=== PATIENT | male | born 1990 | race Caucasian/White ===

== ENCOUNTER 2021-12-11 10:44 | Emergency (ER) | payer OTHER, SELFPAY ==
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
[2021-12-11 10:55] VITALS: BP 164/98; PULSE 77; RESP 18; TEMP 36.9; O2SAT 97
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
[2021-12-11 12:21] VITALS: BP 159/89; PULSE 65; RESP 16; TEMP 36.4; O2SAT 98
== END 2021-12-11 12:23 | disposition home or self-care (01) ==
PROVIDERS: Emergency Provider Family Medicine; PCP Physician Assistant
DX: S62.353A Nondisplaced fracture of shaft of third metacarpal bone, left hand, initial encounter for closed fracture (principal)
CPT/HCPCS: 29125; 73130; 99284

== ENCOUNTER 2023-01-15 01:34 | Emergency (ER) | payer OTHER, SELFPAY ==
--- NOTE | ~2023-01-15 | CT_ITS ---
Clinical Indication: Epigastric pain CT Scan of the Chest, Abdomen, and Pelvis without Contrast: Technique: Contiguous sections were acquired throughout the chest, abdomen, and pelvis without IV con trast administration. Dose reduction technique was used on this scan by utilizing automated exposure control and iterative reconstruction technique. The dose-length product (DLP) was 1310.50 mGy-cm. COMPARISON: 04/17/2011 Findings: There is no evidence of any significant mediastinal, hilar or axillary lymphadenopathy. The mediastin al soft tissues appear normal. Moderate hiatal hernia noted. There is no evidence of pleural or pericardial effusion. 5 mm right perihilar pulmonary nodule noted (axial image 50). Lungs are otherwise clear. The liver, spleen, pancreas, adrenals and kidneys are within normal limits. Probable small gallstone. No evidence of aortic aneurysm. No lymphadenopathy. No bowel obstruction or bowel wall thickening. Normal appendix. Urinary bladder is unremarkable. Prostate gland and seminal vesicles are unremarkable. Impression: 5 mm right perihilar pulmonary nodule. According to Fleischner Society criteria, no further follow-up required for a low-risk patient. Consider 12 month follow-up CT for a high-risk patient. Probable tiny gallstone. Moderate hiatal hernia. Reviewed, dictated and finalized at location . Impression: 5 mm right perihilar pulmonary nodule. According to Fleischner Society criteria , no further follow-up required for a low-risk patient. Consider 12 month follo w-up CT for a high-risk patient. Probable tiny gallstone. Moderate hiatal hernia.
[2023-01-15 01:35] VITALS: BP 172/123; PULSE 110; RESP 20; TEMP 36.6; O2SAT 99
--- NOTE | 2023-01-15 01:35 | ECG_ITS ---
Measurements Intervals [place] Rate: 51 P: 1 CT: 134 QRS: 21 QRSD: 97 T: 12 QT: 400 QTc: 370 Interpretive Statements SINUS BRADYCARDIA OTHERWISE NORMAL ECG NO PREVIOUS ECG AVAILABLE FOR COMPARISON Electronically Signed On 01-15-2023 10:20:41 CDT by Ned Wills M.D.
[2023-01-15] MEDS: ONDANSETRON HCL ODT 4 MG TABLET PO (01:43)
[2023-01-15] MEDS: MAG HYDROX/ALUMINUM HYD/SIMETH 30 ML, PHENobarb/HYOSCY/ATROPINE/SCOP 32.4 MG, LIDOCAINE... PO (01:45)
--- NOTE | 2023-01-15 01:47 | ED.NAVMDI ---
HPI - Nausea/Vomiting/Diarrhea General Chief complaint: Abdominal Pain Stated complaint: epigastric abd pain Time Seen by Provider: 01/15/23 01:35 Source: patient Mode of arrival: ambulatory Limitations: no limitations History of Present Illness HPI Narrative: patient is a 32-year-old male with epigastric abdominal pain and nausea and vomiting who was woken from sleep at this time. patient has eaten 3-day-old pizza in the past 12 hours that no one else ate. MD elicited complaint: nausea, vomiting and abdominal pain Onset (ago): minute(s) (30) Description of vomiting: watery and bilious Associated abdominal pain: Yes Location of pain: epigastric Pain consistency: constant Severity: moderate Quality: sharp Exacerbating factors: none Relieving factors: none Associated symptoms: nausea/vomiting Related Data Home Medications Medication Instructions Recorded Confirmed omeprazole 20 mg capsule,delayed 20 mg PO DAILY 01/15/23 01/15/23 release Allergies Allergy/AdvReac Type Severity Reaction Status Date / Time No Known Allergies Allergy Verified 12/11/21 11:08 Review of Systems Review of Systems: All systems reviewed & are unremarkable except as noted in HPI and below Constitutional: Constitutional: Reports no additional constitutional complaints Eyes: Eyes: Reports no additional eye complaints ENT: Reports system reviewed and no additional complaints, except as documented Cardiovascular: Cardiovascular: Reports no additional cardiovascular complaints Respiratory: Respiratory: Reports no additional respiratory complaints Gastrointestinal: Gastrointestinal: Reports no additional gastrointestinal complaints Genitourinary: Genitourinary: Reports no additional male genitourinary complaints Musculoskeletal: Musculoskeletal: Reports no additional musculoskeletal complaints Integumentary/Breasts: Skin/Breast: Reports system reviewed and no additional complaints, except as docu Neurologic: Reports system reviewed and no additional complaints, except as documented Psychiatric: Psychiatric: Reports no additional psychiatric complaints Endocrine: Endocrine: Reports no additional endocrine complaints Hematologic/Lymphatic: Hematologic/Lymphatic: Reports no additional hematologic/lymphatic complaints Allergic/Immunologic: Allergic/Immunologic: Reports no additional allergic/immunologic complaints Exam Const: General: healthy appearing Nutritional Appearance: well nourished HENMT: Head: normal to inspection Ears: external ears normal Eyes: Conjunctivae: conjunctivae normal Cornea: corneas normal Neck: Neck: normal visual inspection Chest: Chest palpation & inspection: normal inspection of the chest Resp: Effort & Inspection: normal respiratory effort Auscultation: clear to auscultation bilaterally Cardio: Rate: regular rate Rhythm: regular rhythm Heart sounds: no murmurs GI: Inspection: non-distended GI Palp: Yes Soft to palpation, Yes Tenderness to palpation present (GI) and No Guarding due to palpation present (GI) Auscultation: normal bowel sounds : General: Yes bladder normal to palpation Back/Spine/Pelvis: Back: no CVA tenderness Skin: General skin exam: normal color Rashes: no rashes Wounds: no wounds Neuro: General: patient oriented x3 Cranial nerves: Yes Nystagmus not present Speech: normal speech Extrem: General: normal to inspection Psych: Mental Status: mental status grossly normal Affect: normal affect Course Vital Signs Vital signs: Vital Signs Temperature 36.6 C 01/15/23 01:35 Pulse Rate 110 H 01/15/23 01:35 Respiratory Rate 20 01/15/23 01:35 Blood Pressure 172/123 H 01/15/23 01:35 Pulse Oximetry 99 01/15/23 01:35 Oxygen Delivery Room Air 01/15/23 01:35 Temperature 36.6 C 01/15/23 01:35 Pulse Rate 99 01/15/23 02:44 Respiratory Rate 20 01/15/23 03:16 Blood Pressure 132/97 H 01/15/23 03:16 Pulse Oximetry 98 01/15/23 03:16
[2023-01-15] MEDS: SODIUM CHLORIDE 0.9% IV 1,000 ML 999 ML IV CONT (02:09)
[2023-01-15 02:16] LABS: Basophils Absolute Auto 0.08 K/mm3 (0.00-0.10); Basophils Percent Auto 0.7 % (0.0-1.0); Eosinophils Absolute Auto 0.49 K/mm3 (0.02-0.50); Eosinophils Percent Auto 4.1 % (1.0-6.0); Hematocrit 43.8 % (40.0-54.0); Hemoglobin 13.3 g/dL (14.0-18.0); Immature Granulocyte Absolute 0.05 K/mm3 (0.00-0.00); Immature Granulocyte Percent A 0.4 % (0.0-0.0); Lymphocytes Absolute Auto 4.78 K/mm3 (1.10-4.50); Lymphocytes Percent Auto 40.3 % (18.0-42.0); Mean Corpuscular HGB Conc 30.4 g/dL (32.0-36.0); Mean Corpuscular Hemoglobin 23.5 pg (27.0-31.0); Mean Corpuscular Volume 77.5 fL (78.0-102.0); Mean Platelet Volume 10.2 fl (8.7-11.0); Monocytes Absolute Auto 1.26 K/mm3 (0.10-0.90); Monocytes Percent Auto 10.6 % (2.0-11.0); Neutrophils Absolute Auto 5.2 K/mm3 (1.7-7.2); Neutrophils Percent Auto 43.9 % (50.0-70.0); Platelet Count Result 295 K/mm3 (150-420); Red Blood Count 5.65 M/mm3 (4.70-6.10); Red Cell Distribution Width 15.2 % (11.6-14.4); White Blood Count 11.9 K/mm3 (4.8-10.8)
[2023-01-15] MEDS: ONDANSETRON INJ 4 MG/2 ML VIAL IV PUSH (02:18)
[2023-01-15] MEDS: MORPHINE SULFATE (*CRX) 4 MG/ML INJ IV PUSH (02:18)
[2023-01-15] MEDS: PANTOPRAZOLE SODIUM IV 40 MG VIAL IV PUSH (02:19)
--- NOTE | 2023-01-15 02:20 | PC.NURSE ---
Pt escorted c nurse and polysomnograph tech to CT scanner. Pt continues to remain pale in color and having extreme upper abd pain c n/v present. He reports nothing is helping ease the pain. BP elevated, ERP aware of elevated BP at this time. Pt assisted to CT scan table, he c/o feeling very dizzy. Cool cloth given for pt forehead.
[2023-01-15 02:34] LABS: Alanine Aminotransferase 61 U/L (16-63); Albumin Level 3.4 g/dL (3.4-5.0); Alkaline Phosphatase 123 U/L (46-116); Anion Gap 6 mmol/L (8-16); Aspartate Amino Transferase 23 U/L (15-37); Bilirubin,Total 0.4 mg/dL (0.00-1.00); Blood Urea Nitrogen 22 mg/dL (7-18); Calcium 8.7 mg/dL (8.5-10.1); Carbon Dioxide 31 mmol/L (21-32); Chloride 106 mmol/L (98-108); Estimated CRCL calculation 86 ml/min; Estimated Glomerular Filt Rate > 60; Glucose 145 mg/dL (70-99); Lipase 58 U/L (16-77); Osmolality Calculated 302 mOsm/kg (285-295); Potassium 3.5 mmol/L (3.5-5.1); Sodium 143 mmol/L (136-145); Total Protein 7.1 g/dL (6.4-8.2)
[2023-01-15 02:44] VITALS: BP 169/109; PULSE 99; RESP 18; O2SAT 98
[2023-01-15 03:16] VITALS: BP 132/97; RESP 20; O2SAT 98
[2023-01-15 03:25] VITALS: BP 132/89; PULSE 74; RESP 18; TEMP 36.6; O2SAT 99
== END 2023-01-15 03:30 | disposition home or self-care (01) ==
PROVIDERS: Emergency Provider Emergency Medicine; PCP Physician Assistant
DX: K52.9 Noninfective gastroenteritis and colitis, unspecified (principal)
CPT/HCPCS: 36415; 71250; 74176; 80053; 83690; 84484; 85025; 93005; 96361; 96374; 96375; 99284; A9270; C9113; J2270; J2405; J7030

== ENCOUNTER 2023-07-23 10:44 | Emergency (ER) | payer OTHER, SELFPAY ==
[2023-07-23] VITALS (19 sets, daily range): BP systolic 134–176; BP diastolic 87–117; PULSE 41–63; RESP 10–22; TEMP 36.4–36.8; O2SAT 97–100
--- NOTE | ~2023-07-23 | CT_ITS ---
EXAMINATION: CT chest abdomen pelvis wo con DATE: 07/23/2023 11:47 INDICATION: Bilateral flank pain. TECHNIQUE: Computed tomography (CT) of the chest, abdomen, and pelvis was performed without intraveno us contrast. Automated exposure control and iterative reconstruction technique were employed. The dos e-length product was 1187.41 mGy-cm. COMPARISON: CT 01/15/2023 FINDINGS: CHEST CT: There is mild dependent atelectasis bilaterally. Calcified bilateral lung nodules are consistent with old granulomatous disease. No pleural effusion. The heart size is normal. No pericardial effusion. ABDOMEN/PELVIS CT: There is mild intrahepatic biliary duct dilatation. There is a gallstone in the gallbladder, which is distended. There is fat stranding around the pancreas, consistent with acute interstitial pancreatit is. The common duct is dilated to 8 mm. The spleen, adrenal glands, and kidneys are normal. There is diverticulosis of the colon without evidence of diverticulitis. The appendix is normal. There are no pathologically enlarged lymph nodes. There is no free intraperitoneal fluid. There is mild lumbar spo ndylosis. IMPRESSION: 1. Acute interstitial pancreatitis. 2. Cholelithiasis. 3. Gallbladder distention and mildly dilated biliary ducts. No common duct stone identified. Reviewed, dictated and finalized at location A. SHOW HOST IMPRESSION: 1. Acute interstitial pancreatitis. 2. Cholelithiasis. 3. Gallbladder distention and mildly dilated biliary ducts. No common duct ston e identified.
--- NOTE | 2023-07-23 11:00 | PC.NURSE ---
ERP is aware of patient's heart rate being in the 40's and 50's
--- NOTE | 2023-07-23 11:00 | ECG_ITS ---
Measurements Intervals [place] Rate: 51 P: 25 RI: 128 QRS: 43 QRSD: 96 T: 37 QT: 430 QTc: 398 Interpretive Statements SINUS BRADYCARDIA OTHERWISE NORMAL ELECTROCARDIOGRAM COMPARED TO ECG 01/15/2023 01:43:35 NO SIGNIFICANT CHANGES Electronically Signed On 07-23-2023 15:17:47 PLODDING MACHINE OPERATOR by Remi Melo M.D.
[2023-07-23] MEDS: SODIUM CHLORIDE 0.9% IV 1,000 ML 999 ML IV CONT ×2 (11:14→12:36)
[2023-07-23] MEDS: CALCIUM GLUC 2,000 MG/NS 100ML 2,000 MG/100 ML BAG 100 MG IVPB (11:15)
[2023-07-23] MEDS: FAMOTIDINE 20 MG/2 ML VIAL 40 MG IV PUSH (11:15)
--- NOTE | 2023-07-23 11:16 | ED.GENADULT ---
HPI - General Adult General Chief complaint: Unspecified Stated complaint: GERD Time Seen by Provider: 07/23/23 11:00 History of Present Illness HPI narrative: 33yo man history of alcohol abuse now sober, chronic hepatitis C, GERD on omeprazole presents with worsening reflux, heartburn, generalized abdominal cramps, and symmetric bilateral flank and lower back pain. Notices his urine is pretty dark lately, so he stopped his anti-hepC medication Mavyret because concerned about its effect on his liver and kidney. No fevers, chills, vomiting, diarrhea, dysuria, or bloody stools. Related Data Home Medications Medication Instructions Recorded Confirmed omeprazole 20 mg capsule,delayed 20 mg PO DAILY 01/15/23 07/23/23 release ferrous sulfate 325 mg (65 mg 1 mg PO EVERY OTHER DAY 07/23/23 07/23/23 iron) tablet glecaprevir 100 mg-pibrentasvir 40 3 tablet PO DAILY 07/23/23 07/23/23 mg tablet (Mavyret) sertraline 100 mg tablet 100 mg PO DAILY 07/23/23 07/23/23 Allergies Allergy/AdvReac Type Severity Reaction Status Date / Time No Known Allergies Allergy Verified 07/23/23 10:49 Review of Systems Review of Systems: All systems reviewed & are unremarkable except as noted in HPI and below Constitutional: Constitutional: Denies chills and Denies fever(s) ENT: Denies dysphagia Cardiovascular: Cardiovascular: Denies chest pain Respiratory: Respiratory: Denies chest congestion and Denies dyspnea Gastrointestinal: Gastrointestinal: Reports abdominal pain, Reports bloating, Reports heartburn and Reports nausea Genitourinary: Genitourinary: Denies dysuria Musculoskeletal: Musculoskeletal: Reports back pain Neurologic: Denies confusion Hematologic/Lymphatic: Hematologic/Lymphatic: Denies easy bleeding and Denies easy bruising Exam Const: General: healthy appearing, no acute distress and alert Nutritional Appearance: well nourished Orientation/consciousness: patient oriented x3 HENMT: Head: normal to inspection Eyes: Conjunctivae: conjunctivae normal Other: anicteric Chest: Chest palpation & inspection: normal inspection of the chest Resp: Effort & Inspection: normal respiratory effort, not labored, no retractions and not tachypneic Auscultation: clear to auscultation bilaterally Cardio: Rate: bradycardic Rhythm: regular rhythm Heart sounds: no murmurs GI: Inspection: non-distended GI Palp: Yes Soft to palpation and Yes Tenderness to palpation present (GI) Other: bilateral upper quadrant mild tenderness Skin: General skin exam: normal color, no jaundice and no pallor Extrem: General: no clubbing, cyanosis or edema Course Vital Signs Vital signs: Vital Signs Temperature 36.4 C 07/23/23 10:44 Pulse Rate 52 L 07/23/23 10:44 Respiratory Rate 17 07/23/23 10:44 Blood Pressure 141/102 H 07/23/23 10:44 Pulse Oximetry 97 07/23/23 10:44 Oxygen Delivery Room Air 07/23/23 10:44 Temperature 36.4 C 07/23/23 10:50 Pulse Rate 52 L 07/23/23 10:50 Respiratory Rate 16 07/23/23 10:50 Blood Pressure 152/106 H 07/23/23 10:50 Pulse Oximetry 97 07/23/23 10:50 Oxygen Delivery Room Air 07/23/23 10:50 Medical Decision Making MDM Narrative Medical decision making narrative: acute epigastric and flank pain DDx reflux, indigestion, renal colic, renal failure, metabolic derangement, hepatitis Labs and CT reviewed. Has chronic transaminase elevation in 300s. Normal liver function. Possible stranding about pancreas on CT. One cholelith no obstruction or inflammation. EKG with sinus bradycardia. Hypertensive with this. Lipase several thousand lab is having to dilute it. Calling out for transfer. Discussed results with patient, who declines my strong recommendation to stay and be admitted for acute pancreatitis. Pt has intact MDM and his pancreatitis does appear uncomplicated, without biliary obstruction, hemorrhage, necrosis, or dehydration. Triglyc
[2023-07-23 11:24] LABS: Basophils Absolute Auto 0.02 K/mm3 (0.00-0.10); Basophils Percent Auto 0.3 % (0.0-1.0); Eosinophils Absolute Auto 0.16 K/mm3 (0.02-0.50); Eosinophils Percent Auto 2.6 % (1.0-6.0); Hematocrit 42.2 % (40.0-54.0); Hemoglobin 13.1 g/dL (14.0-18.0); Immature Granulocyte Absolute 0.02 K/mm3 (0.00-0.00); Immature Granulocyte Percent A 0.3 % (0.0-0.0); Lymphocytes Absolute Auto 1.06 K/mm3 (1.10-4.50); Lymphocytes Percent Auto 17.2 % (18.0-42.0); Mean Corpuscular Hemoglobin 24.5 pg (27.0-31.0); Mean Platelet Volume 9.9 fl (8.7-11.0); Monocytes Percent Auto 8.1 % (2.0-11.0); Neutrophils Absolute Auto 4.4 K/mm3 (1.7-7.2); Neutrophils Percent Auto 71.5 % (50.0-70.0); Platelet Count Result 222 K/mm3 (150-420); Red Blood Count 5.34 M/mm3 (4.70-6.10); White Blood Count 6.2 K/mm3 (4.8-10.8)
[2023-07-23 11:36] LABS: INR 0.9; Prothrombin Time 10.2 Seconds (9.50-12.10)
[2023-07-23 11:49] LABS: Alanine Aminotransferase 393 U/L (16-63); Albumin Level 3.6 g/dL (3.4-5.0); Alkaline Phosphatase 218 U/L (46-116); Anion Gap 11 mmol/L (8-16); Aspartate Amino Transferase 349 U/L (15-37); Bilirubin,Total 1.2 mg/dL (0.00-1.00); Blood Urea Nitrogen 11 mg/dL (7-18); Calcium 8.8 mg/dL (8.5-10.1); Carbon Dioxide 28 mmol/L (21-32); Chloride 103 mmol/L (98-108); Estimated CRCL calculation 110 ml/min; Estimated Glomerular Filt Rate > 60; Glucose 105 mg/dL (70-99); Osmolality Calculated 293 mOsm/kg (285-295); Potassium 4.6 mmol/L (3.5-5.1); Sodium 142 mmol/L (136-145); Total Protein 7.2 g/dL (6.4-8.2)
[2023-07-23 11:51] LABS: Troponin I 7.1 ng/L (0.00-60.4)
[2023-07-23 11:52] LABS: Ethanol < 3 mg/dL (0-6); Magnesium 1.8 mg/dL (1.8-2.4)
[2023-07-23 11:52] LABS: Creatine Kinase 141 U/L (39-308); NT Pro B Type Natriuretic Pept 31 pg/mL (0-125)
[2023-07-23] MEDS: PROMETHAZINE HCL 25 MG/ML AMPUL 12.5 MG IV PUSH (12:09)
[2023-07-23 12:34] LABS: Lipase > 2500 U/L (16-77)
[2023-07-23] MEDS: KETOROLAC 30 MG/ML VIAL (*BKC) IV PUSH (12:37)
[2023-07-23] MEDS: HYDROmorphone HCL INJ (*CRX) 2 MG/ML VIAL 0.5 MG IV PUSH (12:39)
[2023-07-23 12:53] LABS: Cholesterol 205 mg/dL (0-200); HDL Direct 42 mg/dL (40-60); LDL Cholesterol Calculated 134 mg/dL (<130); Triglycerides 147 mg/dL (0-150)
== END 2023-07-23 13:35 | disposition home or self-care (01) ==
PROVIDERS: Emergency Provider Emergency Medicine; PCP Physician Assistant
DX: K85.10 Biliary acute pancreatitis without necrosis or infection (principal); B18.2 Chronic viral hepatitis C; Z79.899 Other long term (current) drug therapy
CPT/HCPCS: 36415; 71250; 74176; 80053; 80061; 80307; 82550; 83605; 83690; 83735; 83880; 84484; 85025; 85610; 93005; 96361; 96365; 96375; 99284; J0613; J1170; J1885; J2550; J7030

== ENCOUNTER 2023-12-10 08:42 | Outpatient (CLI) | payer OTHER, SELFPAY ==
[2023-12-10 09:14] LABS: Basophils Absolute Auto 0.04 K/mm3 (0.00-0.10); Basophils Percent Auto 0.6 % (0.0-1.0); Eosinophils Absolute Auto 0.11 K/mm3 (0.02-0.50); Eosinophils Percent Auto 1.6 % (1.0-6.0); Hematocrit 46.3 % (40.0-54.0); Hemoglobin 14.8 g/dL (14.0-18.0); Immature Granulocyte Absolute 0.02 K/mm3 (0.00-0.00); Immature Granulocyte Percent A 0.3 % (0.0-0.0); Lymphocytes Absolute Auto 0.92 K/mm3 (1.10-4.50); Lymphocytes Percent Auto 13.2 % (18.0-42.0); Mean Corpuscular Hemoglobin 25.2 pg (27.0-31.0); Mean Corpuscular Volume 78.7 fL (78.0-102.0); Mean Platelet Volume 9.7 fl (8.7-11.0); Monocytes Absolute Auto 0.65 K/mm3 (0.10-0.90); Monocytes Percent Auto 9.3 % (2.0-11.0); Neutrophils Absolute Auto 5.25 K/mm3 (1.70-7.20); Platelet Count Result 178 K/mm3 (150-420); Red Blood Count 5.88 M/mm3 (4.70-6.10); Red Cell Distribution Width 15.2 % (11.6-14.4)
[2023-12-10 09:44] LABS: Alanine Aminotransferase 34 U/L (16-63); Albumin Level 3.8 g/dL (3.4-5.0); Alkaline Phosphatase 94 U/L (46-116); Anion Gap 7 mmol/L (4-12); Aspartate Amino Transferase 21 U/L (15-37); Blood Urea Nitrogen 13 mg/dL (7-18); Calcium 9.3 mg/dL (8.5-10.1); Carbon Dioxide 30 mmol/L (21-32); Chloride 101 mmol/L (98-108); Estimated Glomerular Filt Rate > 60; Glucose 92 mg/dL (70-99); Osmolality Calculated 286 mOsm/kg (285-295); Potassium 4.4 mmol/L (3.5-5.1); Sodium 138 mmol/L (136-145); Total Protein 7.7 g/dL (6.4-8.2)
[2023-12-11 20:49] LABS: Hepatitis C RNA, Quant PCR <15 NOT DETECTED IU/mL (NOT DETECTED)
== END 2023-12-10 08:43 | disposition home or self-care (01) ==
LOC: CHSLAB 08:46
PROVIDERS: PCP Physician Assistant
DX: B19.20 Unspecified viral hepatitis C without hepatic coma (principal)
CPT/HCPCS: 36415; 80053; 85025; 87522

== ENCOUNTER 2024-12-08 09:38 | Emergency (ER) | payer MEDICAID, SELFPAY ==
[2024-12-08] VITALS (9 sets, daily range): BP systolic 132–154; BP diastolic 77–104; PULSE 59–90; RESP 14–18; TEMP 36.7–36.9; O2SAT 94–98
--- NOTE | ~2024-12-08 | CT_ITS ---
CT abdomen pelvis w con Ordering provider: Rashida Ponce MD History: 34 years Male with . N/V, Epigastric pain X 1 day - Gallbladder flare-up? . Comparison: July 23, 2023 Technique: CT abdomen and pelvis with IV and without oral contrast. Automated exposure control and it erative reconstruction technique were employed. The dose-length product was 907.40 mGy-cm. 100 mL Omn ipaque 350 was given IV. Findings: VISUALIZED LOWER CHEST: Normal. UPPER ABDOMINAL ORGANS: Liver: Normal. Gallbladder: Cholelithiasis. Spleen: Normal. Stomach/duodenum: Sliding hiatus hernia. Pancreas: Minimal fat stranding around the head of the pancreas is noted which may indicate pancreati tis. Clinical correlation advised. Adrenals: Normal. Kidneys: Normal. PELVIC ORGANS: The bladder shows slightly thickened wall anteriorly. Evaluation for cystitis advised. BOWEL AND MESENTERY: Colon: No evidence of diverticulitis. Normal appendix. Small Bowel: Normal. No obstruction. Peritoneum/mesentery: No free air or free fluid. No mesenteric lymphadenopathy. RETROPERITONEUM: Normal aorta. No retroperitoneal lymphadenopathy. MUSCULOSKELETAL: Superficial soft tissues: The superficial soft tissues are normal. Bones: Normal spine. IMPRESSION: 1. Minimal fat stranding around the head of the pancreas which may indicate pancreatitis. Clinical c orrelation and follow-up advised. 2. Cholelithiasis. Reviewed, dictated and finalized at location A. IMPRESSION: 1. Minimal fat stranding around the head of the pancreas which may indicate pa ncreatitis. Clinical correlation and follow-up advised. 2. Cholelithiasis.
--- NOTE | ~2024-12-08 | XR_ITS ---
XR chest 1V portable Ordering provider: Rashida Ponce MD History: 34 years Male with . N/V, Epigastric pain X 1 day - Gallbladder flare-up? . Comparison: None. FINDINGS: MEDIASTINUM: The cardiac silhouette is not enlarged. LUNGS: No infiltrates, effusions or pneumothorax. OTHER: No free air under the diaphragm. IMPRESSION: No acute cardiopulmonary pathology. Reviewed, dictated and finalized at location A.
--- NOTE | 2024-12-08 09:55 | ED_ITS ---
HPI - Abdominal Pain General Chief Complaint: Abdominal Pain Stated Complaint: gallbladder attack Source: patient Mode of arrival: ambulatory Limitations: no limitations History of Present Illness HPI narrative: 34 years old white male came to the ED with upper abdominal pain associated with fever, nausea, vomiting for the last 2 days, history of similar symptoms secondary to gallbladder issues. Hit history of hypertension at night marijuana use daily Related Data Home Medications ?Medication ?Instructions ?Recorded ?Confirmed ?Last Taken ?Type omeprazole 20 mg capsule,delayed 20 mg PO DAILY 01/15/23 07/23/23 Unknown History release ferrous sulfate 325 mg (65 mg 1 mg PO EVERY OTHER DAY 07/23/23 07/23/23 Unknown History iron) tablet glecaprevir 100 mg-pibrentasvir 40 3 tablet PO DAILY 07/23/23 07/23/23 Unknown History mg tablet (Mavyret) sertraline 100 mg tablet 100 mg PO DAILY 07/23/23 07/23/23 Unknown History Allergies Allergy/AdvReac Type Severity Reaction Status Date / Time No Known Allergies Allergy Verified 12/08/24 09:42 Review of Systems 2 Review of Systems: All systems reviewed & are unremarkable except as noted in HPI and below Exam 2 Narrative: General appearance: Well-developed, well-nourished Skin: Normal color Head: Normocephalic, nontraumatic Eyes: Clear conjunctiva ENT: Oropharynx normal, ears normal, nose normal Neck: Supple, nontender Chest and respiratory: Airway patent, no respiratory distress, no accessory muscle use Heart: Regular rate/rhythm Abdomen: Soft, diffuse tenderness upper abdomen mainly right upper quadrant and epigastric area, no guarding or rebound Musculoskeletal: Normal range of motion, nontender back Neurologic: Alert and oriented ?3, [employer] is normal as tested, no gross motor deficit Course Vital Signs Vital signs: Vital Signs Pulse Oximetry 96 12/08/24 09:40 Temperature 36.7 C 12/08/24 09:43 Pulse Rate 69 12/08/24 11:06 Respiratory Rate 16 12/08/24 11:06 Blood Pressure 149/100 H 12/08/24 11:06 Pulse Oximetry 97 12/08/24 11:06 Oxygen Delivery Room Air 12/08/24 11:06 MDM - Abdominal Pain MDM Narrative Medical decision making narrative: patient presents with upper abdominal pain, history of cholelithiasis months ago Vital signs are stable Physical examination consistent with diffuse upper abdominal pain mainly right upper quadrant Differential diagnosis include cholecystitis, cholangitis, diverticulitis, colitis, urinary tract infection Blood workup today includes CBC, CMP, lipase, lactic acid showed WBC of 12.1, lipase 1012 CT abdomen and pelvis with IV contrast showed cholelithiasis and pancreatitis Diagnosis acute pancreatitis high likely secondary to cholelithiasis. Patient report no alcohol use for over 1 year, patient declined to be hospitalized because of insurance issue. He is telling me that he is getting get his insurance tomorrow. I declare that I have personally explained to the patient the risks and consequences involved in leaving this facility at this time. the benefits of continued treatment and/or hospitalization. And the alternatives. If any. to continued treatment and/or hospitalization. if applicable.I have not identified any psychosis, drugs, mental illness, or medical illness that alters decision- making capacity (reasoning abilities ). Differential Diagnosis Differential diagnosis: Likely acute appendicitis, diverticulitis, gastroenteritis and pancreatitis Medical Records Attestation: I reviewed the patient's medical records. Lab Data Attestation: I reviewed the patient's lab results. 12/08/24 10:02 12/08/24 10:02 Labs: Lab Results 12/08/24 Range/Units 10:02 WBC 12.1 H (4.8-10.8) K/mm3 RBC 5.40 (4.70-6.10) M/mm3 Hgb 13.9 L (14.0-18.0) g/dL Hct 43.1 (40.0-54.0) % MCV 79.8 (78.0-102.0) fL MCH 25.7 L (27.0-31.0) pg MCHC 32.3 (32-36) g/dL RDW 13.6 (11.6-14.4) % Plt Count 208 (150-420) K/mm3 MPV 9.9 (8.7-11.0) fl Immature Gran % (Auto) 0.3 H (0.0-0.0) % Neut % (Auto) 76.6 H (50.0-70.0) % Lymph % (Auto) 12.7 L (18.0-42.0) % [place] % (Auto) 9.0 (2.0-11.0) % Eos % (Auto) 1.2 (1.0-6.0) % Baso % (Auto) 0.2 (0.0-1.0) % Lymph # (Auto) 1.54 (1.10-4.50) K/mm3 [place] # (Auto) 1.09 H (0.10-0.90) K/mm3 Eos # (Auto) 0.14 (0.02-0.50) K/mm3 Baso # (Auto) 0.03 (0.00-0.10) K/mm3 Abs Immat Gran (auto) 0.04 H (0.00-0.00) K/mm3 Absolute Neuts (auto) 9.25 H (1.70-7.20) K/mm3 Absolute Nucleated RBC 0.00 (0.00-0.00) K/mm3 Nucleated RBC % 0.0 (0-0.0) % Sodium 138 (137-145) mmol/L Potassium 4.4 (3.4-5.0) mmol/L Chloride 106 (98-107) mmol/L Carbon Dioxide 28 (22-30) mmol/L Anion Gap 4 (4-12) mmol/L BUN 21 H (9-20) mg/dL Creatinine 1.22 (0.7-1.3) mg/dL Estim Creat Clear Calc 91 ml/min Estimated GFR > 60 (59 - ) Glucose 100 (65-110) mg/dL Calculated Osmolality 289 (285-295) mOsm/kg Lactic Acid 0.8 (0.4-2.0) mmol/L Calcium 8.8 (8.4-10.2) mg/dL Total Bilirubin 0.8 (0.2-1.3) mg/dL AST 25 (17-59) U/L ALT 21 (6-50) U/L Alkaline Phosphatase 67 (38-126) U/L Troponin I < 0.012 (0.000-0.034) ng/mL Total Protein 7.5 (6.3-8.2) g/dL Albumin 4.1 (3.5-5.1) g/dL Lipase 1012 H (23-300) U/L Imaging Data Radiologist's impression: ITS Impressions Chest X-Ray 12/08/24 10:51 IMPRESSION: No acute cardiopulmonary pathology. Abdomen/Pelvis CT 12/08/24 10:52 IMPRESSION: 1. Minimal fat stranding around the head of the pancreas which may indicate pancreatitis. Clinical correlation and follow-up advised. 2. Cholelithiasis. Critical Care Time Critical Care Time Critical Care Time: No Discharge Plan Discharge Clinical Impression: Acute pancreatitis Patient Disposition: Left Against Medical Advice Condition: Stable Instructions: Pancreatitis (ED) Additional Instructions: Patient left AGAINST MEDICAL ADVICE. Patient Language: Sami Prescriptions: No Action omeprazole 20 mg Capsule,Delayed Release(Dr/Ec) 20 mg PO DAILY sertraline 100 mg tablet 100 mg PO DAILY ferrous sulfate 325 mg (65 mg iron) tablet 1 mg PO EVERY OTHER DAY Mavyret 100-40 mg tablet 3 tablet PO DAILY ketorolac 10 mg tablet 10 mg PO Q6H PRN (Reason: moderate to severe acute pain) 5 Days Qty: 15 0RF hydrocodone-acetaminophen 5-325 mg tablet 2 tablet PO Q6H PRN (Reason: severe pain only) Qty: 30 0RF promethazine 25 mg tablet 25 mg PO Q6H PRN (Reason: nausea, abdominal pain) Qty: 20 0RF Follow-up/Referrals: Tai,JAY Storm [Primary Care Provider] -
[2024-12-08 10:07] LABS: Basophils Absolute Auto 0.03 K/mm3 (0.00-0.10); Basophils Percent Auto 0.2 % (0.0-1.0); Eosinophils Absolute Auto 0.14 K/mm3 (0.02-0.50); Eosinophils Percent Auto 1.2 % (1.0-6.0); Hematocrit 43.1 % (40.0-54.0); Hemoglobin 13.9 g/dL (14.0-18.0); Immature Granulocyte Absolute 0.04 K/mm3 (0.00-0.00); Immature Granulocyte Percent A 0.3 % (0.0-0.0); Lymphocytes Absolute Auto 1.54 K/mm3 (1.10-4.50); Lymphocytes Percent Auto 12.7 % (18.0-42.0); Mean Corpuscular HGB Conc 32.3 g/dL (32-36); Mean Corpuscular Hemoglobin 25.7 pg (27.0-31.0); Mean Corpuscular Volume 79.8 fL (78.0-102.0); Mean Platelet Volume 9.9 fl (8.7-11.0); Monocytes Absolute Auto 1.09 K/mm3 (0.10-0.90); Neutrophils Absolute Auto 9.25 K/mm3 (1.70-7.20); Neutrophils Percent Auto 76.6 % (50.0-70.0); Platelet Count Result 208 K/mm3 (150-420); Red Cell Distribution Width 13.6 % (11.6-14.4); White Blood Count 12.1 K/mm3 (4.8-10.8)
[2024-12-08] MEDS: ONDANSETRON INJ 4 MG/2 ML VIAL IV PUSH (10:08)
[2024-12-08] MEDS: SODIUM CHLORIDE 0.9% IV 1,000 ML 999 ML IV CONT (10:08)
[2024-12-08] MEDS: HYDROmorphone HCL INJ (*CRX) 2 MG/ML VIAL 0.5 MG IV PUSH (10:08)
[2024-12-08 10:17] LABS: Alanine Aminotransferase 21 U/L (6-50); Albumin Level 4.1 g/dL (3.5-5.1); Alkaline Phosphatase 67 U/L (38-126); Anion Gap 4 mmol/L (4-12); Aspartate Amino Transferase 25 U/L (17-59); Bilirubin,Total 0.8 mg/dL (0.2-1.3); Blood Urea Nitrogen 21 mg/dL (9-20); Calcium 8.8 mg/dL (8.4-10.2); Carbon Dioxide 28 mmol/L (22-30); Chloride 106 mmol/L (98-107); Estimated CRCL calculation 91 ml/min; Estimated Glomerular Filt Rate > 60; Glucose 100 mg/dL (65-110); Lipase 1012 U/L (23-300); Osmolality Calculated 289 mOsm/kg (285-295); Potassium 4.4 mmol/L (3.4-5.0); Sodium 138 mmol/L (137-145); Total Protein 7.5 g/dL (6.3-8.2)
[2024-12-08 10:18] LABS: Lactic Acid Reflex 0.8 mmol/L (0.4-2.0)
[2024-12-08 10:30] LABS: Troponin I < 0.012 ng/mL (0.000-0.034)
== END 2024-12-08 13:10 | disposition left against medical advice (07) ==
PROVIDERS: Emergency Provider Emergency Medicine; PCP Physician Assistant
DX: K85.90 Acute pancreatitis without necrosis or infection, unspecified (principal); I10 Essential (primary) hypertension
CPT/HCPCS: 36415; 71045; 74177; 80053; 83605; 83690; 84484; 85025; 96361; 96374; 96375; 99284; J1171; J2405; J7030; Q9967

== ENCOUNTER 2024-12-08 14:40 | Inpatient (IN) | payer OTHER, SELFPAY ==
--- NOTE | ~2024-12-08 | US_ITS ---
EXAMINATION: US right upper quadrant DATE: 12/08/2024 19:32 INDICATION: RUQ pain TECHNIQUE: Multiple grayscale and Doppler ultrasound images of the right upper quadrant were obtained . COMPARISON: CT abdomen pelvis, same date. FINDINGS: Pancreas poorly visualized. Diffusely echogenic parenchyma. No solid or cystic liver mass d etected. No surface nodularity. Normal hepatopetal flow in the main portal vein. No wall thickening o r pericholecystic fluid. Multiple mobile echogenic intraluminal gallbladder foci. 7 mm echogenicity o f the gallbladder fundus which was not mobile and did not shadow. The common bile duct measures 3 mm. Positive sonographic Jerome sign. IMPRESSION: Echogenic liver, most commonly due to steatosis but also can be seen with hepatitis and fibrosis. Cholelithiasis. No gallbladder wall thickening or pericholecystic fluid. Positive sonographic Jerome sign, which may related to gallbladder pathology or confounded by the inflammatory changes noted in t he pancreatic head CT. 7 mm adherent stone versus gallbladder polyp. Reviewed, dictated and finalized at location K. IMPRESSION: Echogenic liver, most commonly due to steatosis but also can be seen with hepat itis and fibrosis. Cholelithiasis. No gallbladder wall thickening or pericholecystic fluid. Positi ve sonographic Jerome sign, which may related to gallbladder pathology or confo unded by the inflammatory changes noted in the pancreatic head CT. 7 mm adherent stone versus gallbladder polyp.
--- OUTSIDE RECORDS SUMMARY | 2024-12-08 14:47 | XMS_ITS ---
Author Organization Unknown Address [address] [place] [phone] Phone Care Team Providers Care Managing Cognitive Engineer Name Role Phone MAKI Carolina Attending Unavailable KATHERINE Engle Primary Unavailable Immunization Immunization Date Status Additional Notes Code Code System DTP 1988 Completed CVX DTP 03/07/1989 Completed CVX DTP 11/12/1990 Completed CVX DTP 12/06/1990 Completed CVX DTP 11/13/1991 Completed CVX DTP 01/27/1993 Completed CVX OPV 1988 Completed 02 CVX OPV 03/07/1989 Completed 02 CVX OPV 12/06/1990 Completed 02 CVX OPV 11/13/1991 Completed 02 CVX OPV 01/27/1993 Completed 02 CVX MMR 12/06/1990 Completed 03 CVX MMR 01/27/1993 Completed 03 CVX Hep B, adolescent or pediatric 08/12/1998 Completed 08 CVX Hep B, adolescent or pediatric 09/09/1998 Completed 08 CVX Hep B, adolescent or pediatric 03/17/1999 Completed 08 CVX Td (adult), 2 Lf tetanus toxoid, preservative free, adsorbed 2003 Completed 09 CVX Hib, unspecified formulation 12/06/1990 Completed 17 CVX Results MRI ABDOMEN W/O CONTRAST - C ompleted: 08/14/2023 13:15 LOINC: ADDENDUM REPORT: ADDENDUM: This addendum report supersedes the original report dated 08/14/2023 Correction to the technique which should read as below: TECHNIQUE: MR images of the ABDOMEN only were acquired without intravenous contrast according to the [facility] protocol. All images stored on PACS. END OF ADDENDUM REPORT EXAM DESCRIPTION: MRI ABDOMEN W/O CONTRAST REASON FOR STUDY: MRCP protocol. c.6 months of GERD-like s/s, with a 1-yr diagnosis of Hepatitis C and accompanying abnormalities in the pt's liver labs; gallstones apparently demonstrated on outside CT; pt states he had begun, then interrupted, treatment for the Hep-C, until the more-acute s/s could be parsed out. No traumatic incidents noted. Duration: 1 yr w/Hepatitis C, 6 mos of acute G.I. s/s. TECHNIQUE: MR images of the abdomen/pelvis were acquired without intravenous contrast according to the MRCP protocol. All images stored on PACS. COMPARISON: None available FINDINGS: LOWER CHEST: No significant pulmonary abnormalities. No effusion. LIVER: Normal size. No mass. No cysts. GALLBLADDER: Stones. No wall thickening or pericholecystic fluid BILE DUCTS: No intrahepatic or extrahepatic ductal dilatation. No filling defect to suggest choledocholithiasis. The common bile duct measures 6 mm. SPLEEN: Enlarged at 13.9 cm. No focal lesion. PANCREAS: No masses. No significant calcifications. No adjacent inflammation or peripancreatic fluid collections. Pancreatic duct not dilated. KIDNEYS: 3 mm T2 hyperintense cyst in the left kidney. No solid masses. ADRENALS: Normal. GI: No dilated bowel loops. No wall thickening. Normal appendix. No diverticulosis. PERITONEUM: No ascites. RETROPERITONEUM: No mass or adenopathy. VASCULATURE: No abdominal aortic aneurysm. MUSCULOSKELETAL: No acute findings. OTHER: No other abnormality. IMPRESSION: ? ? Uncomplicated cholelithiasis. No evidence of biliary obstruction. ? ? Normal-sized liver. No focal hepatic lesion. ? ? Splenomegaly. THIS IS AN ELECTRONICALLY VERIFIED FINAL REPORT 08/16/2023 9:50 AM - Electronically signed by Alicia Jerez M.D. FT: FT Report ID: [id number] Reading Location: [place] [address] THIS IS AN ELECTRONICALLY VERIFIED FINAL REPORT 09/13/2023 3:54 PM ? Addendum Electronically signed by Alicia Jerez M.D. FT: FT Report ID: [id number] Reading Location: [id number] Social History Type Status Start Date End Date Code Code Syst em Smoking History Never smoker (Never Smoked) 423617384 SNOMED CT Sex Male Hospital Discharge Instructions Should you have any questions prior to discharge, please contact a member of your healthcare team. If you have left the hospital and have any questions, please contact your primary care physician. Reason For Referral No Data Found Allergies and Adverse Reactions Allergy Substance Reaction Severity Start Date Concern Status Co de Code System No Known Drug Allergies Active 771133360 SNOMED-CT Plan of Treatment Lap Roxana w/IOC 01/10/2024 Cholangiography Intraoperative 01/10/20 CT Chest/Lung WO Contrast (27192) 02/05 Encounters Encounter Diagnosis Start Date Code Code Sys tem Imaging of gastrointestinal tract abnormal 08/14/2023 [id number] SNOMED-CT Personal Care Team Section Performer Name Performer Role Active Date Inactive HAMMAD Shah PCP - Primary care physician 2021-12-21 Imaging Narrative Notes
--- OUTSIDE RECORDS SUMMARY | 2024-12-08 14:48 | XMS_ITS ---
Author Organization Unknown Address [address] [place] [phone] Phone Care Team Providers Care Splicing Technician Name Role Phone MAKI Carolina Attending Unavailable [...] unspecified formulation 12/06/1990 Completed 17 CVX Results LIVER PROFILE - Collect Date /Time: 07/26/2023 11:26 [facility] ID: [id number] [address] [place], [place], [phone] LOINC: 75422-5 Test Value Unit Reference Range Code Code System Flag ALT 151 U/L L=9 H=72 1742-6 LOINC H AST 44 U/L L=15 H=46 1920-8 LOINC ALKALINE PHOS 142 U/L L=38 H=126 6768-6 LOINC H TOTAL PROTEIN 8.1 g/L L=6.3 H=8.2 2885-2 LOINC TOTAL BILI 0.7 mg/dL L=0.2 H=1.3 1974-2 LOINC DIRECT BILI 0.0 mg/dL L=0.0 H=0.3 1967-7 LOINC INDIRECT BILI 0.40 mg/dL L=0.00 H=1.10 1970- LOINC ALBUMIN 4.5 G/dL L=3.5 H=5.0 1751-7 LOINC LIPASE - Collect Date/Time: 07/26/2023 11:26 [facility] ID: [id number] [address] [place] [address], [id number] LOINC: 3040-3 Test Value Unit Reference Range Code Code System Flag LIPASE 111 U/L L=23 H=300 3040-3 LOINC CBC W/O DIFF - Collect Date/ Time: 07/26/2023 11:26 [facility] ID: [id number] [address] [place] [address], [phone] LOINC: 91420-7 Test Value Unit Reference Range Code Code System Flag WBC 8.0 10^3uL L=4.8 H=10.8 RBC 5.71 10^6uL L=4.60 H=6.20 HEMOGLOBIN 13.9 g/dL L=14.0 H=18.0 718-7 LOINC L HEMATOCRIT 45.2 VOL% L=42.0 H=52.0 4544-3 LOINC MCV 79.2 fL L=80.0 H=94.0 L MCH 24.3 pg L=27.0 H=32.0 L MCHC 30.8 g/dL L=32.0 H=36.0 L PLATELETS 227 10^3uL L=100 H=400 17149-0 LOINC RDW 14.9 % L=11.7 H=15.5 Social History Type Status Start Date End Date Code Code Syst em Smoking History Never smoker (Never Smoked) 340309184 SNOMED CT Sex Male Hospital Discharge Instructions [...] Code System No Known Drug Allergies Active 239397829 SNOMED-CT Plan of Treatment Lap Roxnaa w/IOC 01/10/2024 Cholangiography Intraoperative 01/10/20 CT Chest/Lung WO Contrast (50474) 02/05 Encounters Encounter Diagnosis Start Date Code Code Sys tem Abnormal findings on diagnos tic imaging of other parts of digestive tract 07/26/2023 SNOMED-CT Personal Care Team Section Performer Name Performer Role Active Date Inactive HAMMAD Shah PCP - Primary care physician 2021-12-21
--- OUTSIDE RECORDS SUMMARY | 2024-12-08 14:48 | XMS_ITS ---
Author Organization Unknown Address [address] [place], [place] [phone] Phone Care Team Providers Care Window Trimmer Name Role Phone JOSE LUIS HIGH Attending Unavailable KATHERINE Engle Primary Unavailable Immunization [...] unspecified formulation 12/06/1990 Completed [address] CHEST/LUNG WO CONTRAST - Completed: 02/06/2024 14:52 LOINC: EXAM DESCRIPTION: CT CHEST/LUNG WO CONTRAST REASON FOR STUDY: Pulmonary nodules. No chest complaints. Duration: N/A TECHNIQUE: Multiplanar computed tomographic imaging of the thorax. Automated exposure control was used as a dose optimization technique for this study. COMPARISON: None. FINDINGS: 2 mm nodule medial right lower lobe axial image 48. 5 mm nodule posterior right lower lobe axial image 54 is calcified and consistent with prior granulomatous infection. 2 mm nodule apical left upper lobe axial image 15. 4 mm nodule subpleural posterior left lower lobe axial image 46. Trachea is midline. Central airways are patent. No focal consolidation. No pleural effusions. Thoracic aorta normal in caliber. No suspicious mediastinal lymph nodes. Normal heart size. No coronary artery calcification. No pericardial effusion. IMPRESSION: No acute intrathoracic abnormality. Pulmonary nodules as described above are likely related to prior granulomatous infection. Follow-up imaging in 6 months is recommended. Incidentally noted in the partially imaged upper abdomen is cholelithiasis and splenomegaly and a small paraesophageal hernia. THIS IS AN ELECTRONICALLY VERIFIED FINAL REPORT 02/08/2024 7:04 AM - Electronically signed by Jeffrey Kovacs M.D. SN: SN Report ID: [id number] Reading Location: [place] [address] Social History Type Status Start Date End Date Code Code Syst em Smoking History Never smoker (Never Smoked) 890906143 SNOMED CT Sex Male Hospital Discharge Instructions [...] Code System No Known Drug Allergies Active 830423879 SNOMED-CT Plan of Treatment Lap Roxana w/IOC 01/10/2024 Cholangiography Intraoperative 01/10/[address] Chest/Lung WO Contrast (62627) 02/05 Encounters Encounter Diagnosis Start Date Code Code Sys tem Solitary nodule of lung 02/06/2024 [id number] SN ED-CT Personal Care Team Section Performer Name Performer Role Active Date Inactive HAMMAD Shah PCP - Primary care physician 2021-12-21 Imaging Narrative Notes
--- OUTSIDE RECORDS SUMMARY | 2024-12-08 14:48 | XMS_ITS | Clinical Summary ---
Author Organization [facility] Address [address] [place] [address] Care Team Providers Care Administrative Intern Name Role Phone Scott Suresh MD Primary Care Provider [phone] Allergies No known active allergies Social History Tobacco Use Types Packs/Day Years Used Date Smoking Tobacco: Never Assessed Sex and Gender Information Value Date Recorded Sex Assigned at Male 10/13/2024 3:49 PM CDT Legal Sex Male 6:42 PM CDT Gender Identity Not on file Sexual Orientation Not on file Last Filed Vital Signs Vital Sign Reading Time Taken Comments Blood Pressure 137/96 08/25/2024 11:14 AM CDT Pulse 61 08/25/2024 11:14 AM CDT Temperature - - Respiratory Rate - - Oxygen Saturation - - Inhaled Oxygen Concentration - - Weight 103.8 kg (228 lb 12.8 oz) 2024 11:14 AM CDT Height 176.5 cm (5' 9.5) 08/25/2024 11 :14 AM CDT Body Mass Index 33.3 08/25/2024 11:14 AM CDT Plan of Treatment Upcoming Encounters Date Type Department Care Team (Late st Contact Info) Description 12/25/2024 4:[address] [facility] [address] [place] [address] Fletcher Khan MD [address] [place] [address] Health Maintenance Due Date Last Done Comments Annual Physical 1991 DTaP, Tdap and Td Vaccines (2 - Tdap) 03/04/2003 2003, 01/27/1993, 11/13/1991, Additional history exists Hepatitis C 2006 COVID-19 Vaccine (2023- season) 2024 Hepatitis B Vaccines Completed 03/17/1999, 09/09/1998, 08/12/1998 HPV Vaccines Aged Out No longer eligi ble based on patient's age to complete this topic Meningococcal B Vaccine Aged Out No l onger eligible based on patient's age to complete this topic Meningococcal Vaccine Aged Out No prakash paul eligible based on patient's age to complete this topic Pneumococcal Vaccine: Pediatrics (0 to 5 Years) and At-Risk Patients (6 to 49 Years) Aged Out No longer eligible based on patient's age to complete this topic RSV Immunizations Under 20 Months Aged Out No longer eligible based on patient's age to complete this topic Care Teams Administrative Intern Relationship Specialty Start Date End Date Scott Suresh MD [address] [place] [phone] PCP - General FAMILY PRACTICE 04/16/19
--- OUTSIDE RECORDS SUMMARY | 2024-12-08 14:48 | XMS_ITS | Encounter Summary ---
Author Organization [facility] Address [address] [place] [address] Care Team Providers Care Manager Of School Name Role Phone Scott Suresh MD Primary Care Provider [phone] Encounter Details Date Type Department Care Team (Late st Contact Info) Description 11/16/2018 Abstract [facility] CONVERSION [address] [place] [address] , Generic Conversion, Social History Tobacco Use Types Packs/Day Years Used Date Smoking Tobacco: Never Assessed Sex and Gender Information Value Date Recorded Sex Assigned at Male 10/13/2024 3:49 PM CDT Legal Sex Male 6:42 PM CDT Gender Identity Not on file Sexual Orientation Not on file documented as of this encounter Plan of Treatment Upcoming Encounters Date Type Department Care Team (Late st Contact Info) Description 12/25/2024 4:[address] [facility] [address] [place] [address] Fletcher Khan MD [address] [place], [place] documented as of this encounter Visit Diagnoses Not on filedocumented in this encounter Care Teams Manager Of School Relationship Specialty Start Date End Date Scott Suresh MD [address] [place] [phone] PCP - General FAMILY PRACTICE 04/16/19 documented as of this encounter
[2024-12-08 14:56] VITALS: BP 162/97; PULSE 68; RESP 17; TEMP 36.8; O2SAT 98
--- NOTE | 2024-12-08 15:09 | ED_ITS ---
HPI - Abdominal Pain General Chief Complaint: Abdominal Pain <Bernie Marshall APRN - Last Filed: 12/08/24 15:12> Stated Complaint: Gallbladder issues(stone)-abd pain <Bernie Marshall APRN - Last Filed: 12/08/24 15:12> Time Seen by Provider: 12/08/24 15:00 <Bernie Marshall APRN - Last Filed: 12/08/24 15:12> Focused HPI: Patient is a 34 year old male presents to the ED with upper abdominal pain associated with fever, nausea, vomiting for the last 2 days. He reports he was at [facility] ([facility] earlier today. They were going to transfer him here for GI consult, but patient got tired of waiting so he drove here himself. Patient reports they diagnosed him with pancreatitis and cholecystitis. He has a history of cholelithiasis, hypertension, and daily marijuana use. Patient endorses pain of 5/10. GENERAL: Well-appearing, well-nourished, and in no acute distress. HEAD: Normocephalic, atraumatic. CHEST: Clear to auscultation. ?No respiratory distress. HEART: Regular rate and rhythm.? NEURO: ?Alert and oriented x3. Patient screened in triage and initial orders placed.? ?Additional care and disposition to be based upon?diagnostic testing and treatment. <Bernie Marshall APRN - Last Filed: 12/08/24 15:12> Related Data Home Medications: Home Medications ?Medication ?Instructions ?Recorded ?Confirmed ?Last Taken ?Type omeprazole 20 mg capsule,delayed 20 mg PO DAILY 01/15/23 12/08/24 12/08/24 History release sertraline 100 mg tablet 100 mg PO DAILY 07/23/23 12/08/24 12/08/24 History lisinopril 5 mg tablet 5 mg PO DAILY 12/08/24 12/08/24 12/08/24 History <Bernie Marshall APRN - Last Filed: 12/08/24 15:12> Allergies/Adverse Reactions: Allergies Allergy/AdvReac Type Severity Reaction Status Date / Time No Known Allergies Allergy Verified 12/08/24 09:42 <Bernie Marshall APRN - Last Filed: 12/08/24 15:12> Review of Systems 2 Review of Systems: All systems reviewed & are unremarkable except as noted in HPI and below <Celine Beckford PA-C - Last Filed: 12/08/24 23:35> PMFSH Past Medical History Medical History: Medical History (Updated 12/09/24 @ 11:16 by ROSEANNE Lacy) Marijuana use HTN (hypertension) Cholelithiasis Pancreatitis Hepatitis C Completed treatment in 2023 <Bernie Marshall APRN - Last Filed: 12/08/24 15:12> Surgical History Surgical History: Surgical History No pertinent past surgical history <Bernie Marshall APRN - Last Filed: 12/08/24 15:12> Social History Social History: Social History Smoking status: Never smoker Alcohol intake: former Substance use: current Substance use type: marijuana Last use: 12/08/24 Do You Feel Safe in your Home?: Yes Lack of Transportation: No Lack of Food: Never True Current Housing: I Have Housing Concerned About Future Housing: No Difficulty Paying Gas/Electric Bills: No Difficulty Paying for Meds: No Currently Unemployed: No Education: High School Diploma/GED Difficulty w/ Childcare or Family Care: No Spiritual care concerns: No <Bernie Marshall APRN - Last Filed: 12/08/24 15:12> Exam 2 Narrative: GENERAL: Well-appearing, well-nourished, and in no acute distress. HEAD: Normocephalic, atraumatic. EYES: EOMI. CHEST: Clear to auscultation. No respiratory distress. No wheezes rales or rhonchi HEART: Regular rate and rhythm. No murmur heard. Normal peripheral pulses. ABDOMEN: Soft, nondistended, normal active bowel sounds. Tender to palpation in the right upper quadrant pain, without guarding EXTREMITIES: Normal range of motion. No edema. SKIN: Warm, dry, no rash. NEURO: No focal deficits. Alert and oriented x3. 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 I was available for consultation while they were in the emergency department but did not physically examine them and was not directly involved in their care. <Karla Jackman MD - Last Filed: 12/09/24 17:56> Consultations Consultation #1: Spoke with hospitalist about patient and workup who accepts admission < Celine Beckford PA-C - Last Filed: 12/08/24 23:35> Date: 12/08/24 <Celine Beckford PA-C - Last Filed: 12/08/24 23:35> Vital Signs Vital signs: Vital Signs Temperature 98.2 F 12/08/24 14:56 Pulse Rate 68 12/08/24 14:56 Respiratory Rate 17 12/08/24 14:56 Blood Pressure 162/97 H 12/08/24 14:56 Pulse Oximetry 98 12/08/24 14:56 Oxygen Delivery Room Air 12/08/24 14:56 Temperature 98.8 F 12/09/24 14:46 Pulse Rate 59 L 12/09/24 14:46 Respiratory Rate 18 12/09/24 14:46 Blood Pressure 140/83 12/09/24 14:46 Pulse Oximetry 97 12/09/24 14:46 Oxygen Delivery Room Air 12/09/24 08:00 <Bernie Marshall, BRIT - Last Filed: 12/08/24 15:12> Vital Signs Temperature 98.2 F 12/08/24 14:56 Pulse Rate 68 12/08/24 14:56 Respiratory Rate 17 12/08/24 14:56 Blood Pressure 162/97 H 12/08/24 14:56 Pulse Oximetry 98 12/08/24 14:56 Oxygen Delivery Room Air 12/08/24 14:56 Temperature 98.8 F 12/09/24 14:46 Pulse Rate 59 L 12/09/24 14:46 Respiratory Rate 18 12/09/24 14:46 Blood Pressure 140/83 12/09/24 14:46 Pulse Oximetry 97 12/09/24 14:46 Oxygen Delivery Room Air 12/09/24 08:00 <Celine Beckford PA-C - Last Filed: 12/08/24 23:35> Vital Signs Temperature 98.2 F 12/08/24 14:56 Pulse Rate 68 12/08/24 14:56 Respiratory Rate 17 12/08/24 14:56 Blood Pressure 162/97 H 12/08/24 14:56 Pulse Oximetry 98 12/08/24 14:56 Oxygen Delivery Room Air 12/08/24 14:56 Temperature 98.8 F 12/09/24 14:46 Pulse Rate 59 L 12/09/24 14:46 Respiratory Rate 18 12/09/24 14:46 Blood Pressure 140/83 12/09/24 14:46 Pulse Oximetry 97 12/09/24 14:46 Oxygen Delivery Room Air 12/09/24 08:00 <Karla Jackman MD - Last Filed: 12/09/24 17:56> MDM - Abdominal Pain MDM Narrative Medical decision making narrative: Patient presents the emergency department for right upper quadrant abdominal pain. Seen today it is on Hospital, diagnosed with pancreatitis. Sign out AMA, presented here for further evaluation. He is afebrile and nontoxic appearing. His vitals are stable. Review of his workup at [place] showed CBC with leukocytosis of 12.2. Metabolic panel with normal liver enzymes. Lipase elevated at 1012. CT abdomen and pelvis with pancreatitis, cholelithiasis. Patient updated on his workup and recommendation for admission. Spoke with hospitalist about patient and workup who accepts admission. Will consult surgery <Celine Beckford PA-C - Last Filed: 12/08/24 23:35> Differential Diagnosis Differential diagnosis: Likely pancreatitis and other (cholecystitis) <Celine Beckford PA-C - Last Filed: 12/08/24 23:35> Medical Records Attestation: I reviewed the patient's medical records. <Celine Beckford PA-C - Last Filed: 12/08/24 23:35> Medical records narrative: Work up at [facility] today showed white blood cell count of 12.2, normal liver enzymes, Lipase of 1012. CT abd/pelvis (12/08/24): Findings: VISUALIZED LOWER CHEST: Normal. UPPER ABDOMINAL ORGANS: Liver: Normal. Gallbladder: Cholelithiasis. Spleen: Normal. Stomach/duodenum: Sliding hiatus hernia. Pancreas: Minimal fat stranding around the head of the pancreas is noted which may indicate pancreatitis. Clinical correlation advised. Adrenals: Normal. Kidneys: Normal. PELVIC ORGANS: The bladder shows slightly thickened wall anteriorly. Evaluation for cystitis advised. BOWEL AND MESENTERY: Colon: No evidence of diverticulitis. Normal appendix. Small Bowel: Normal. No obstruction. Peritoneum/mesentery: No free air or free fluid. No mesenteric lymphadenopathy. RETROPERITONEUM: Normal aorta. No retroperitoneal lymphadenopathy. MUSCULOSKELETAL: Superficial soft tissues: The superficial soft tissues are normal. Bones: Normal spine. IMPRESSION: 1. Minimal fat stranding around the head of the pancreas which may indicate pancreatitis. Clinical correlation and follow-up advised. 2. Cholelithiasis. <Celine Beckford PA-C - Last Filed: 12/08/24 23:35> Lab Data Result diagrams: 12/09/24 05:23 12/09/24 05:23 <Bernie Marshall APRN - Last Filed: 12/08/24 15:12> Labs: Lab Results 12/09/24 12/09/24 Range/Units 05:22 05:23 WBC 10.6 H (4.5-10.0) K/mm3 RBC 4.92 (4.6-6.20) M/mm3 Hgb 12.5 L (14.0-18.0) g/dL Hct 39.6 L (42.0-52.0) % MCV 80.5 (80-100) fl MCH 25.4 L (26-34) pg MCHC 31.6 L (32-36) g/dl RDW 13.7 (11.5-14.5) % Plt Count 193 (150-375) k/mm3 MPV 9.9 (7.4-10.4) fl Immature Gran % (Auto) 0.5 (0-0.5) % Neut % (Auto) 77.3 H (45.5-73.1) % Lymph % (Auto) 11.9 L (18.3-44.2) % Labette % (Auto) 9.0 H (2.6-8.5) % Eos % (Auto) 1.0 (0-4.4) % Baso % (Auto) 0.3 (0.2-1.2) % Lymph # (Auto) 1.26 (0.9-3.2) K/mm3 Labette # (Auto) 1.0 H (0.1-0.6) K/mm3 Eos # (Auto) 0.1 (0-0.3) K/mm3 Baso # (Auto) 0.0 (0.0-0.1) K/mm3 Abs Immat Gran (auto) 0.05 H (0.00-0.031) K/mm3 Absolute Neuts (auto) 8.2 H (1.3-6.7) K/mm3 Absolute Nucleated RBC 0.000 (0.0-0.012) K/mm3 Nucleated RBC % 0.0 (0.0-0.2) % Sodium 138 (137-145) mmol/L Potassium 4.3 (3.4-5.0) mmol/L Chloride 107 (98-107) mmol/L Carbon Dioxide 22 (22-30) mmol/L Anion Gap 9 (4-12) mmol/L BUN 18 (9-20) mg/dL Creatinine 1.21 (0.7-1.3) mg/dL Estim Creat Clear Calc 92 ml/min Estimated GFR > 60 (59 - ) Glucose 100 (65-110) mg/dL Calcium 9.0 (8.4-10.2) mg/dL Magnesium 1.9 (1.6-2.3) mg/dL Total Bilirubin 0.8 (0.2-1.3) mg/dL AST 24 (17-59) U/L ALT 19 (6-50) U/L Alkaline Phosphatase 62 (38-126) U/L Total Protein 7.1 (6.3-8.2) g/dL Albumin 3.8 (3.5-5.1) g/dL Triglycerides 180 H (<150) mg/dL Cholesterol 226 H (0-200) mg/dL LDL Cholesterol Direct 148 mg/dL HDL Direct 30 mg/dL Lipase 483 H (23-300) U/L <Bernie Marshall, SUPERVISORY HISTORIAN - Last Filed: 12/08/24 15:12> Lab Results 12/09/24 12/09/24 Range/Units 05:22 05:23 WBC 10.6 H (4.5-10.0) K/mm3 RBC 4.92 (4.6-6.20) M/mm3 Hgb 12.5 L (14.0-18.0) g/dL Hct 39.6 L (42.0-52.0) % MCV 80.5 (80-100) fl MCH 25.4 L (26-34) pg MCHC 31.6 L (32-36) g/dl RDW 13.7 (11.5-14.5) % Plt Count 193 (150-375) k/mm3 MPV 9.9 (7.4-10.4) fl Immature Gran % (Auto) 0.5 (0-0.5) % Neut % (Auto) 77.3 H (45.5-73.1) % Lymph % (Auto) 11.9 L (18.3-44.2) % Labette % (Auto) 9.0 H (2.6-8.5) % Eos % (Auto) 1.0 (0-4.4) % Baso % (Auto) 0.3 (0.2-1.2) % Lymph # (Auto) 1.26 (0.9-3.2) K/mm3 Labette # (Auto) 1.0 H (0.1-0.6) K/mm3 Eos # (Auto) 0.1 (0-0.3) K/mm3 Baso # (Auto) 0.0 (0.0-0.1) K/mm3 Abs Immat Gran (auto) 0.05 H (0.00-0.031) K/mm3 Absolute Neuts (auto) 8.2 H (1.3-6.7) K/mm3 Absolute Nucleated RBC 0.000 (0.0-0.012) K/mm3 Nucleated RBC % 0.0 (0.0-0.2) % Sodium 138 (137-145) mmol/L Potassium 4.3 (3.4-5.0) mmol/L Chloride 107 (98-107) mmol/L Carbon Dioxide 22 (22-30) mmol/L Anion Gap 9 (4-12) mmol/L BUN 18 (9-20) mg/dL Creatinine 1.21 (0.7-1.3) mg/dL Estim Creat Clear Calc 92 ml/min Estimated GFR > 60 (59 - ) Glucose 100 (65-110) mg/dL Calcium 9.0 (8.4-10.2) mg/dL Magnesium 1.9 (1.6-2.3) mg/dL Total Bilirubin 0.8 (0.2-1.3) mg/dL AST 24 (17-59) U/L ALT 19 (6-50) U/L Alkaline Phosphatase 62 (38-126) U/L Total Protein 7.1 (6.3-8.2) g/dL Albumin 3.8 (3.5-5.1) g/dL Triglycerides 180 H (<150) mg/dL Cholesterol 226 H (0-200) mg/dL LDL Cholesterol Direct 148 mg/dL HDL Direct 30 mg/dL Lipase 483 H (23-300) U/L <Celine Beckford PA-C - Last Filed: 12/08/24 23:35> Lab Results 12/09/24 12/09/24 Range/Units 05:22 05:23 WBC 10.6 H (4.5-10.0) K/mm3 RBC 4.92 (4.6-6.20) M/mm3 Hgb 12.5 L (14.0-18.0) g/dL Hct 39.6 L (42.0-52.0) % MCV 80.5 (80-100) fl MCH 25.4 L (26-34) pg MCHC 31.6 L (32-36) g/dl RDW 13.7 (11.5-14.5) % Plt Count 193 (150-375) k/mm3 MPV 9.9 (7.4-10.4) fl Immature Gran % (Auto) 0.5 (0-0.5) % Neut % (Auto) 77.3 H (45.5-73.1) % Lymph % (Auto) 11.9 L (18.3-44.2) % Labette % (Auto) 9.0 H (2.6-8.5) % Eos % (Auto) 1.0 (0-4.4) % Baso % (Auto) 0.3 (0.2-1.2) % Lymph # (Auto) 1.26 (0.9-3.2) K/mm3 Labette # (Auto) 1.0 H (0.1-0.6) K/mm3 Eos # (Auto) 0.1 (0-0.3) K/mm3 Baso # (Auto) 0.0 (0.0-0.1) K/mm3 Abs Immat Gran (auto) 0.05 H (0.00-0.031) K/mm3 Absolute Neuts (auto) 8.2 H (1.3-6.7) K/mm3 Absolute Nucleated RBC 0.000 (0.0-0.012) K/mm3 Nucleated RBC % 0.0 (0.0-0.2) % Sodium 138 (137-145) mmol/L Potassium 4.3 (3.4-5.0) mmol/L Chloride 107 (98-107) mmol/L Carbon Dioxide 22 (22-30) mmol/L Anion Gap 9 (4-12) mmol/L BUN 18 (9-20) mg/dL Creatinine 1.21 (0.7-1.3) mg/dL Estim Creat Clear Calc 92 ml/min Estimated GFR > 60 (59 - ) Glucose 100 (65-110) mg/dL Calcium 9.0 (8.4-10.2) mg/dL Magnesium 1.9 (1.6-2.3) mg/dL Total Bilirubin 0.8 (0.2-1.3) mg/dL AST 24 (17-59) U/L ALT 19 (6-50) U/L Alkaline Phosphatase 62 (38-126) U/L Total Protein 7.1 (6.3-8.2) g/dL Albumin 3.8 (3.5-5.1) g/dL Triglycerides 180 H (<150) mg/dL Cholesterol 226 H (0-200) mg/dL LDL Cholesterol Direct 148 mg/dL HDL Direct 30 mg/dL Lipase 483 H (23-300) U/L <Karla Jackman MD - Last Filed: 12/09/24 17:56> Imaging Data Radiologist's impression: ITS Impressions Upper Quadrant Ultrasound 12/08/24 19:40 IMPRESSION: Echogenic liver, most commonly due to steatosis but also can be seen with hepatitis and fibrosis. Cholelithiasis. No gallbladder wall thickening or pericholecystic fluid. Positive sonographic Jerome sign, which may related to gallbladder pathology or confounded by the inflammatory changes noted in the pancreatic head CT. 7 mm adherent stone versus gallbladder polyp. <Bernie Marshall APRN - Last Filed: 12/08/24 15:12> ITS Impressions Upper Quadrant Ultrasound 12/08/24 19:40 IMPRESSION: Echogenic liver, most commonly due to steatosis but also can be seen with hepatitis and fibrosis. Cholelithiasis. No gallbladder wall thickening or pericholecystic fluid. Positive sonographic Jerome sign, which may related to gallbladder pathology or confounded by the inflammatory changes noted in the pancreatic head CT. 7 mm adherent stone versus gallbladder polyp. <Celine Beckford PA-C - Last Filed: 12/08/24 23:35> ITS Impressions Upper Quadrant Ultrasound 12/08/24 19:40 IMPRESSION: Echogenic liver, most commonly due to steatosis but also can be seen with hepatitis and fibrosis. Cholelithiasis. No gallbladder wall thickening or pericholecystic fluid. Positive sonographic Jerome sign, which may related to gallbladder pathology or confounded by the inflammatory changes noted in the pancreatic head CT. 7 mm adherent stone versus gallbladder polyp. <Karla Jackman MD - Last Filed: 12/09/24 17:56> Critical Care Time Critical Care Time Critical Care Time: No <Celine Beckford PA-C - Last Filed: 12/08/24 23:35> Discharge Plan Discharge Clinical Impression: Acute pancreatitis Qualifiers: Pancreatitis type: unspecified pancreatitis type Acute pancreatitis complication: no infection or necrosis Qualified Code(s): K85.90 - Acute pancreatitis without necrosis or infection, unspecified Cholelithiasis Qualifiers: Cholelithiasis location: gallbladder Cholecystitis presence: without cholecystitis Biliary obstruction: without biliary obstruction Qualified Code(s): K80.20 - Calculus of gallbladder without cholecystitis without obstruction <Bernie Marshall APRN - Last Filed: 12/08/24 15:12> Patient Disposition: Still a Patient <Bernie Marshall APRN - Last Filed: 12/08/24 15:12> Condition: Stable <Bernie Marshall APRN - Last Filed: 12/08/24 15:12>
--- OUTSIDE RECORDS SUMMARY | 2024-12-08 19:00 | XMS_ITS ---
Author Organization Unknown Address [id number] [place] [phone] Phone Care Team Providers Care Diamond Sander Name Role Phone MAKI Carolina Attending Unavailable [...] PROFILE - Collect Date /Time: 07/26/2023 11:26 [facility] ID: [id number] [place], [place], [id number] LOINC: 06397-0 Test Value Unit Reference Range Code Code [...] 1970- LOINC ALBUMIN 4.5 G/dL L=3.5 H=5.0 175-7 LOINC LIPASE - Collect Date/Time: 07/26/2023 11:26 [facility] ID: [id number] [id number] [place] [address], [id number] LOINC: 3040-3 Test Value Unit Reference Range Code Code System Flag LIPASE 111 U/L L=23 H=300 3040-3 LOINC CBC W/O DIFF - Collect Date/ Time: 07/26/2023 11:26 [facility] ID: [id number] [address] [place] [address], [id number] LOINC: 59015-7 Test Value Unit Reference Range Code Code System Flag WBC 8.0 10^3uL L=4.8 H=10.8 RBC 5.71 10^6uL L=4.60 H=6.20 HEMOGLOBIN 13.9 g/dL L=14.0 H=18.0 718-7 LOINC L HEMATOCRIT 45.2 VOL% L=42.0 H=52.0 4544-3 LOINC MCV 79.2 fL L=80.0 H=94.0 L MCH 24.3 pg L=27.0 H=32.0 L MCHC 30.8 g/dL L=32.0 H=36.0 L PLATELETS 227 10^3uL L=100 H=400 85734-8 LOINC RDW 14.9 % L=11.7 H=15.5 Social History Type Status Start Date End Date Code Code Syst em Smoking History Never smoker (Never Smoked) 187550159 SNOMED CT Sex Male Hospital Discharge Instructions [...] Code System No Known Drug Allergies Active 805344143 SNOMED-CT Plan of Treatment Lap Roxana w/IOC 01/10/2024 Cholangiography Intraoperative 01/10/[address] Chest/Lung WO Contrast (37383) 02/05 Encounters Encounter Diagnosis Start Date Code Code Sys tem Abnormal findings on diagnos tic imaging of other parts of digestive tract 07/26/2023 SNOMED-CT Personal Care Team Section Performer Name Performer Role Active Date Inactive HAMMAD Shah PCP - Primary care physician 2021-12-21
--- OUTSIDE RECORDS SUMMARY | 2024-12-08 19:00 | XMS_ITS | Clinical Summary ---
Author Organization [facility] Address [address] [place] [address] Care Team Providers Care Regulatory Affairs Coordinator Name Role Phone Scott Suresh MD Primary Care Provider [phone] Allergies No known active allergies Social History [...] Appointment [facility] [address] [place] [address] Fletcher Khan MD [address] [place] [address] Health Maintenance Due Date Last [...] age to complete this topic Care Teams Regulatory Affairs Coordinator Relationship Specialty Start Date End Date Scott Suresh MD [address] [place] [phone] PCP - General FAMILY PRACTICE 04/16/19
--- OUTSIDE RECORDS SUMMARY | 2024-12-08 19:00 | XMS_ITS ---
Author Organization Unknown Address [address] [place], [place] [id number] Phone Care Team Providers Care Surgery Aid Name Role Phone JOSE LUIS HIGH Attending [...] Jeffrey Kovacs M.D. SN: SN Report ID: [id number] Reading Location: [place] [address] Social History Type Status Start Date End Date Code Code Syst em Smoking History Never smoker (Never Smoked) 200210242 SNOMED CT Sex Male Hospital Discharge Instructions [...] Code System No Known Drug Allergies Active 414208797 SNOMED-CT Plan of Treatment Lap Roxana w/IOC 01/10/2024 Cholangiography Intraoperative 01/10/[address] Chest/Lung WO Contrast (97984) 02/05 Encounters Encounter Diagnosis Start Date Code Code Sys tem Solitary nodule of lung 02/06/2024 610632962 SN ED-CT Personal Care Team Section Performer Name Performer Role Active Date Inactive HAMMAD Shah PCP - Primary care physician 2021-12-21 Imaging Narrative Notes
--- OUTSIDE RECORDS SUMMARY | 2024-12-08 19:00 | XMS_ITS ---
Author Organization Unknown Address [address] [place] [phone] Phone Care Team Providers Care Manager Clinical Name Role Phone MAKI Carolina Attending Unavailable [...] acquired without intravenous contrast according to the [facility] protocol. All images stored on PACS. [...] Alicia Jerez M.D. FT: FT Report ID: [id number] Reading Location: [place] [address] THIS IS AN ELECTRONICALLY VERIFIED FINAL REPORT 09/13/2023 3:54 PM ? Addendum Electronically signed by Alicia Jerez M.D. FT: FT Report ID: [id number] Reading Location: [id number] Social History Type Status Start Date End Date Code Code Syst em Smoking History Never smoker (Never Smoked) 143721551 SNOMED CT Sex Male Hospital Discharge Instructions [...] Code System No Known Drug Allergies Active 342203839 SNOMED-CT Plan of Treatment Lap Roxana w/IOC 01/10/2024 Cholangiography Intraoperative 01/10/20 CT Chest/Lung WO Contrast (46950) 02/05 Encounters Encounter Diagnosis Start Date Code Code Sys tem Imaging of gastrointestinal tract abnormal 08/14/2023 520559606 SNOMED-CT Personal Care Team Section Performer Name Performer Role Active Date Inactive HAMMAD Shah PCP - Primary care physician 2021-12-21 Imaging Narrative Notes
--- OUTSIDE RECORDS SUMMARY | 2024-12-08 19:00 | XMS_ITS | Encounter Summary ---
Author Organization [facility] Address [address] [place] [address] Care Team Providers Care Electro Mechanical Solar Technician Name Role Phone Scott Suresh MD Primary Care Provider [phone] Encounter Details Date Type Department Care Team (Late st Contact Info) Description 11/16/2018 Abstract [facility]FL CONVERSION [address] [place] [address] , Generic Conversion, Social History Tobacco Use [...] Appointment [facility] [address] [place] [address] Fletcher Khan MD [address] [place], [place] [address] documented as of this encounter Visit Diagnoses Not on filedocumented in this encounter Care Teams Electro Mechanical Solar Technician Relationship Specialty Start Date End Date Scott Suresh MD [address] [place] [phone] PCP - General FAMILY PRACTICE 04/16/19 documented as of this encounter
[2024-12-08 19:12] VITALS: BP 136/80; PULSE 60; RESP 16; TEMP 36.6; O2SAT 100
[2024-12-08] MEDS: SODIUM CHLORIDE 0.9% IV 1,000 ML 999 ML IV CONT (19:18)
[2024-12-08] MEDS: MORPHINE SULFATE (*CRX) 4 MG/ML INJ IV PUSH (19:18)
[2024-12-08] MEDS: ONDANSETRON INJ 4 MG/2 ML VIAL IV PUSH (19:18)
[2024-12-08] MEDS: HYDROmorphone HCL INJ (*CRX) 2 MG/ML VIAL 0.5 MG IV PUSH ×2 (20:11→23:24)
[2024-12-08] MEDS: METOCLOPRAMIDE HCL INJ 10 MG/2 ML VIAL IV PUSH (21:41)
[2024-12-08 22:25] VITALS: BP 136/88; PULSE 56; RESP 15; O2SAT 97
[2024-12-08 22:34] VITALS: BMI 33.3
--- NOTE | 2024-12-08 22:38 | ADMGEN ---
This patient, Ronnie Crawford, was admitted to Medical Room 344-01. Patient/family oriented to hospital policies and general routines including ID bracelet, bed and alarms, visiting hours, pain management, procedures, bathroom and other care routines, personal items, smoking policy, room service/diet, and visiting hours. Information on how to activate the Rapid Response Team has been discussed. Patient/Family are encouraged to report perceived risks to care and to ask questions if they do not understand what they are told or what they should do.
[2024-12-08] MEDS: SODIUM CHLORIDE 0.9% IV 1,000 ML 125 ML IV CONT (22:47)
--- NOTE | 2024-12-08 23:16 | P.HP_ITS ---
H&P: HPI History of Present Illness Date/Time: 12/08/24 23:16 Chief Complaint: Abdominal Pain Narrative: 34 y/o M with PMH of hepatitis-C, heavy alcohol use, and pancreatitis presents here with abdominal pain. The patient reports onset of except abdominal pain approximately 2 days ago. He reports associated fever, chills, nausea, and vomiting. Fever was subjective - warm to the touch. Abdominal pain is epigastric and radiates to his right lower back, stabbing, constant (severity varies), and certain position/position changes will alleviate or aggravate the pain. He denies diarrhea or constipation. Last occurrence of pancreatitis on file was in [place] of 2023. Patient also has history of cholelithiasis. He was initially evaluated at [facility], was offered transfer to [place] however he felt this took too long so he elected to drive himself to [facility]. Previous history of alcohol abuse, over 1 year sober. Initial VS at presentation: 98.2? F, HR 68, R 17, 162/97, and 98% on RA. ED workup showed: WBC 10.1, hemoglobin 13.9, no significant electrolyte derangements, creatinine 1.22 and GFR >60, initial troponin negative, lipase 1012. CT of the abdomen/pelvis showed minimal fat stranding around the head of the pancreas which may indicate pancreatitis and cholelithiasis. Right upper quadrant ultrasound showed echogenic liver most commonly due to steatosis thickened also be seen with hepatitis in fibrosis, cholelithiasis with no gallbladder wall thickening or elian cholecystic fluid with a positive sonographic Jerome sign, and 7 mm adherent stone versus gallbladder polyp. Review of Systems Review of Systems: All systems reviewed & are unremarkable except as noted in HPI and below PMFSH Past Medical History Medical History HTN (hypertension) Cholelithiasis Pancreatitis Hepatitis C Social History Social History Smoking status: Never smoker Alcohol intake: former Substance use: current Substance use type: marijuana Last use: 12/08/24 Do You Feel Safe in your Home?: Yes Lack of Transportation: No Lack of Food: Never True Current Housing: I Have Housing Concerned About Future Housing: No Difficulty Paying Gas/Electric Bills: No Difficulty Paying for Meds: No Currently Unemployed: No Education: High School Diploma/GED Difficulty w/ Childcare or Family Care: No Spiritual care concerns: No Meds Home Medications and Allergies Home Medications ?Medication ?Instructions ?Recorded ?Confirmed ?Type omeprazole 20 mg capsule,delayed 20 mg PO DAILY 01/15/23 12/08/24 History release sertraline 100 mg tablet 100 mg PO DAILY 07/23/23 12/08/24 History lisinopril 5 mg tablet 5 mg PO DAILY 12/08/24 12/08/24 History Allergies Allergy/AdvReac Type Severity Reaction Status Date / Time No Known Allergies Allergy Verified 12/08/24 09:42 Vital Signs Vital Signs - 24 hr 12/08/24 14:56 12/08/24 19:12 12/08/24 22:25 Temperature 98.2 F 97.8 F Pulse Rate 68 60 56 L Respiratory Rate 17 16 15 Blood Pressure 162/97 H 136/80 136/88 Pulse Oximetry 98 100 97 Oxygen Delivery Room Air Room Air Exam Const: General: comfortable and no acute distress Other: , male, nontoxic appearance HENMT: Face/Nose/Sinus: Normal nares present Mouth: Yes moist mucous membranes Eyes: General: appearance normal, both eyes and all related structures Sclera: sclerae normal Pupils: Equal, round and reactive pupils present EOM: EOMs intact bilaterally Resp: Effort & Inspection: normal respiratory effort Auscultation: clear to auscultation bilaterally Cardio: Rate: regular rate Rhythm: regular rhythm Other: S1-S2 present without murmur, rub, ectopy GI: Other: Abdomen soft, nondistended. Tender in the epigastric and right upper quadrant. Normoactive bowel sounds in all quadrants. No hepatomegaly or splenomegaly appreciated. Skin: General skin exam: normal color and no rashes or lesions noted Wounds: no wounds Neuro: Speech: normal speech Motor exam (neuro): 5/5 motor strength present throughout Sensory Exam: normal sensation Other: A&O x4 Extrem: General: normal to inspection Psych: Mental Status: mental status grossly normal Affect: normal affect Other: Good insight and judgment, pleasant Assessment and Plan Assessment and plan (1) Acute pancreatitis: Qualifiers: Acute pancreatitis complication: no infection or necrosis Pancreatitis type: unspecified pancreatitis type Qualified Code(s): K85.90 - Acute pancreatitis without necrosis or infection, unspecified Code(s): K85.90 - Acute pancreatitis without necrosis or infection, unspecified Status: Acute Assessment and Plan: - acute on chronic, initially due to alcohol use. Concern for GB etiology currently. - IV fluids: 1L bolus -> 125 mL/hour - trend lipase, currently: 1012 - AST, ALT, alk phos within normal limits. Monitor. - check lipid panel - pain control with Tylenol, [place], Dilaudid - Zofran prn for nausea - CT abd/pelvis: 1. Minimal fat stranding around the head of the pancreas which may indicate pancreatitis. Clinical correlation and follow-up advised. 2. Cholelithiasis. - previous ETOH abuse, currently sober - GI consulted, awaiting recs? - NPO, advance to clear liquid diet tomorrow, and then advance patient's diet as tolerated. (2) Cholelithiasis: Code(s): K80.20 - Calculus of gallbladder without cholecystitis without obstruction Status: Acute Assessment and Plan: - US RUQ: Echogenic liver, most commonly due to steatosis but also can be seen with hepatitis and fibrosis. Cholelithiasis. No gallbladder wall thickening or pericholecystic fluid. Positive sonographic Jerome sign, which may related to gallbladder pathology or confounded by the inflammatory changes noted in the pancreatic head CT. 7 mm adherent stone versus gallbladder polyp. - general surgery consulted - see pain management and antiemetics above - NPO (3) HTN (hypertension): Qualifiers: Hypertension type: primary hypertension Qualified Code(s): I10 - Essential (primary) hypertension Code(s): I10 - Essential (primary) hypertension Status: Chronic Assessment and Plan: - chronic, currently 136/88 - continue home medications: Lisinopril 5 mg daily - monitor Plan Diet: NPO GI Prophylaxis: Omeprazole DVT Prophylaxis: SCDs IV fluids: 1L bolus -> 125 mL/hour Lines/Tubes: Peripheral IV Code Status: Full code Quality VTE Prophylaxis VTE prophylaxis: mechanical ordered Hospitalist [facility] Advance Care Plan I have confirmed that the patient's Advanced Care Plan is present, code status is documented, or surrogate decision maker is listed in patient medical record.: Yes Medication Reconciliation I have utilized all available resources to obtain, update and review the patients current medications (includes all prescriptions, OTC, herbals, cannabis, and nutritional supplements).: Yes
[2024-12-09] VITALS (7 sets, daily range): BP systolic 140–154; BP diastolic 75–96; PULSE 55–73; RESP 14–20; TEMP 35.9–37.1; O2SAT 97–100
[2024-12-09] MEDS: HYDROmorphone HCL INJ (*CRX) 2 MG/ML VIAL 0.5 MG IV PUSH ×3 (03:30→23:41)
[2024-12-09] MEDS: ONDANSETRON INJ 4 MG/2 ML VIAL IV PUSH ×2 (03:37→19:32)
[2024-12-09] MEDS: ACETAMINOPHEN 325 MG TABLET 650 MG PO (04:42)
[2024-12-09 05:39] LABS: Hematocrit 39.6 % (42.0-52.0); Hemoglobin 12.5 g/dL (14.0-18.0); Immature Granulocyte Percent A 0.5 % (0-0.5); Lymphocytes Absolute Auto 1.26 K/mm3 (0.9-3.2); Mean Corpuscular HGB Conc 31.6 g/dl (32-36); Mean Corpuscular Hemoglobin 25.4 pg (26-34); Mean Corpuscular Volume 80.5 fl (80-100); Nucleated Red Blood Cells Absolute Auto 0.000 K/mm3 (0.0-0.012); Nucleated Red Blood Cells Perc 0.0 % (0.0-0.2); Platelet Count Result 193 k/mm3 (150-375); Red Blood Count 4.92 M/mm3 (4.6-6.20); White Blood Count 10.6 K/mm3 (4.5-10.0)
[2024-12-09] MEDS: SODIUM CHLORIDE 0.9% IV 1,000 ML 125 ML IV CONT ×3 (06:39→23:42)
--- NOTE | 2024-12-09 07:12 | PM.IMPN ---
Progress Note: A&P Assessment and Plan (1) Acute pancreatitis: Qualifiers: Acute pancreatitis complication: no infection or necrosis Pancreatitis type: unspecified pancreatitis type Qualified Code(s): K85.90 - Acute pancreatitis without necrosis or infection, unspecified Code(s): K85.90 - Acute pancreatitis without necrosis or infection, unspecified Status: Acute Assessment and Plan: CT abd/pelvis: Minimal fat stranding around the head of the pancreas which may indicate pancreatitis. Cholelithiasis. RUQ US: Echogenic liver, most commonly due to steatosis but also can be seen with hepatitis and fibrosis. Cholelithiasis. No gallbladder wall thickening or pericholecystic fluid. Positive sonographic Jerome sign, which may related to gallbladder pathology or confounded by the inflammatory changes noted in the pancreatic head CT. 7 mm adherent stone versus gallbladder polyp. - acute on chronic, initially due to alcohol use, however concern for gallbladder etiology currently. previous ETOH abuse, currently sober for 1 year - IV fluids: 1L bolus -> 125 mL/hour - trend lipase, currently: 1012. Repeat lipase ordered. - AST, ALT, alk phos within normal limits. Monitor. - pain control with Tylenol, [place], Dilaudid - Phenergan prn for nausea - clear liquids with plan for lap willard tomorrow with dr. alcantar (2) Cholelithiasis: Qualifiers: Biliary obstruction: without biliary obstruction Cholecystitis presence: without cholecystitis Cholelithiasis location: gallbladder Qualified Code(s): K80.20 - Calculus of gallbladder without cholecystitis without obstruction Code(s): K80.20 - Calculus of gallbladder without cholecystitis without obstruction Status: Chronic Assessment and Plan: CT abd/pelvis: Minimal fat stranding around the head of the pancreas which may indicate pancreatitis. Cholelithiasis. RUQ US: Echogenic liver, most commonly due to steatosis but also can be seen with hepatitis and fibrosis. Cholelithiasis. No gallbladder wall thickening or pericholecystic fluid. Positive sonographic Jerome sign, which may related to gallbladder pathology or confounded by the inflammatory changes noted in the pancreatic head CT. 7 mm adherent stone versus gallbladder polyp. - IV pain management: IV Dilaudid 0.5 mg PRN - Gentle IV fluid resuscitation - Diet: clear liquid diet, NPO at midnight - Monitor vital signs, I and O's, check stool output, neuro status and patient is a fall risk - Monitor serum electrolytes and CBC - Monitor lactic acid - General surgery consulted plan for lap willard tomorrow with Dr. Alcantar (3) HTN (hypertension): Qualifiers: Hypertension type: primary hypertension Qualified Code(s): I10 - Essential (primary) hypertension Code(s): I10 - Essential (primary) hypertension Status: Chronic Assessment and Plan: Chronic, continue home medications - Lisinopril 5 mg daily - blood pressures remain stable, continue to monitor Time Spent With Patient Time with patient: 25 - 35 minutes Subjective Date/time seen: 12/09/24 07:12 Interval history: 34 year old male with past medical history of hepatitis-C, heavy alcohol use, and pancreatitis presents to the hospital with abdominal pain. Patient is pleasant sitting up comfortably in bed. Earlier this morning patient was having increased nausea with several episodes of vomiting. The Zofran was changed to Phenergan and patient's nausea has since subsided. He continues to endorse diffuse abdominal pain but states that this is well controlled on the current regimen. He has no other complaints denies chest pain, shortness a breath, palpitations. Patient evaluated by surgery and plan for laparoscopic cholecystectomy tomorrow. Review of Systems Review of Systems: All systems reviewed & are unremarkable except as noted in HPI and below Exam Narrative: AF HR 60 RR 18 Spo2 100 BP 146/96 General: male in no acute respiratory distress who is nontoxic appearing, sitting up in bed. HEENT: Normocephalic. Atraumatic. Extraocular movement intact. Sclera clear and anicteric. No facial asymmetry. Chest: Lungs are clear to auscultation bilaterally. No wheezes or crackles. CV: Heart was regular rate and rhythm. S1/S2. No murmurs, gallops, or rubs. Abd: Abdomen was soft. Diffusely tender, more to RUQ and epigastric region without guarding. Nondistended. Positive bowel sounds. Ext: No clubbing, cyanosis, or edema. Neuro: Patient is alert and oriented x4. Speech is clear. Objective Data Vital Signs Vital Signs: Vital Signs - 24 hr 12/08/24 14:56 12/08/24 19:12 12/08/24 22:25 Temperature 98.2 F 97.8 F Pulse Rate 68 60 56 L Respiratory Rate 17 16 15 Blood Pressure 162/97 H 136/80 136/88 Pulse Oximetry 98 100 97 Oxygen Delivery Room Air Room Air 12/09/24 00:30 Temperature 98.8 F Pulse Rate 60 Respiratory Rate 20 Blood Pressure 145/78 H Pulse Oximetry 98 Oxygen Delivery Intake/Output Intake/Output: Intake & Output 12/06/24 12/07/24 12/08/24 12/09/24 23:59 23:59 23:59 23:59 Intake Total 1000 983.3 Balance 1000 983.3 Meds/Results Medications: Active Medications Generic Name Dose Route Start Last Admin Trade Name Freq PRN Reason Stop Dose Admin Acetaminophen 650 mg 12/08/24 23:24 12/09/24 04:42 Acetaminophen 325 Mg Tablet PO 650 mg Q4H PRN Administration Mild Pain (1-3) or Fever Hydrocodone Bitart/Acetaminophen 1 tab 12/08/24 23:24 Hydrocodone/Acetaminophen (*Crx) 5-325 Mg Tablet PO Q4H PRN Pain Rated 4-6 Hydromorphone HCl 0.5 mg 12/08/24 23:18 12/09/24 07:09 Hydromorphone Hcl Inj (*Crx) 2 Mg/Ml Vial IV PUSH 0.5 mg Q3H PRN Administration Pain Rated 7-10 Sodium Chloride 1,000 mls @ 125 mls/hr 12/08/24 21:25 12/09/24 06:39 Normal Saline Iv IV CONT 125 mls/hr .Q8H SERJIO Administration Lisinopril 5 mg 12/09/24 09:00 Lisinopril 5 Mg Tablet PO DAILY [facility] Ondansetron HCl 4 mg 12/08/24 23:25 12/09/24 03:37 Ondansetron Inj 4 Mg/2 Ml Vial IV PUSH 4 mg Q6H PRN Administration Nausea And Vomiting Pantoprazole Sodium 40 mg 12/09/24 09:00 Pantoprazole 40 Mg Tablet PO QAM [facility] Sertraline HCl 100 mg 12/09/24 09:00 Sertraline Hcl 50 Mg Tablet PO DAILY [facility] Radiology Results: ITS Impressions Upper Quadrant Ultrasound 12/08/24 19:40 IMPRESSION: Echogenic liver, most commonly due to steatosis but also can be seen with hepatitis and fibrosis. Cholelithiasis. No gallbladder wall thickening or pericholecystic fluid. Positive sonographic Jerome sign, which may related to gallbladder pathology or confounded by the inflammatory changes noted in the pancreatic head CT. 7 mm adherent stone versus gallbladder polyp. Labs Labs: Laboratory Results - last 24 hr 12/09/24 05:23 WBC 10.6 H RBC 4.92 Hgb 12.5 L Hct 39.6 L MCV 80.5 MCH 25.4 L MCHC 31.6 L RDW 13.7 Plt Count 193 MPV 9.9 Immature Gran % (Auto) 0.5 Neut % (Auto) 77.3 H Lymph % (Auto) 11.9 L [place] % (Auto) 9.0 H Eos % (Auto) 1.0 Baso % (Auto) 0.3 Lymph # (Auto) 1.26 [place] # (Auto) 1.0 H Eos # (Auto) 0.1 Baso # (Auto) 0.0 Abs Immat Gran (auto) 0.05 H Absolute Neuts (auto) 8.2 H Absolute Nucleated RBC 0.000 Nucleated RBC % 0.0 Quality VTE Prophylaxis VTE prophylaxis: mechanical ordered
[2024-12-09 07:50] LABS: Alanine Aminotransferase 19 U/L (6-50); Albumin Level 3.8 g/dL (3.5-5.1); Alkaline Phosphatase 62 U/L (38-126); Anion Gap 9 mmol/L (4-12); Aspartate Amino Transferase 24 U/L (17-59); Bilirubin,Total 0.8 mg/dL (0.2-1.3); Blood Urea Nitrogen 18 mg/dL (9-20); Calcium 9.0 mg/dL (8.4-10.2); Carbon Dioxide 22 mmol/L (22-30); Chloride 107 mmol/L (98-107); Cholesterol 226 mg/dL (0-200); Estimated CRCL calculation 92 ml/min; Estimated Glomerular Filt Rate > 60; Glucose 100 mg/dL (65-110); HDL Direct 30 mg/dL; Magnesium 1.9 mg/dL (1.6-2.3); Potassium 4.3 mmol/L (3.4-5.0); Sodium 138 mmol/L (137-145); Total Protein 7.1 g/dL (6.3-8.2); Triglycerides 180 mg/dL (<150)
[2024-12-09] MEDS: PROMETHAZINE HCL 25 MG/ML AMPUL 12.5 MG IV PUSH ×2 (08:56→23:41)
--- NOTE | 2024-12-09 11:04 | P.CONGS_ITS ---
Assessment and Plan Assessment and plan (1) Acute pancreatitis: Qualifiers: Acute pancreatitis complication: no infection or necrosis Pancreatitis type: unspecified pancreatitis type Qualified Code(s): K85.90 - Acute pancreatitis without necrosis or infection, unspecified Code(s): K85.90 - Acute pancreatitis without necrosis or infection, unspecified Status: Acute Assessment and Plan: * Patient presented with acute pancreatitis. He does have evidence of cholelithiasis on imaging. No signs of obstructive jaundice. LFTs are normal. No biliary dilation noted on imaging. He may have passed a stone. He does have a history of heavy alcohol use, but has been sober for over year. Triglycerides barely elevated, which would not contribute to his pancreatitis. Etiology is likely biliary. Discussed treatment options with the patient and the option of proceeding with a laparoscopic cholecystectomy to prevent future episodes of choledocholithiasis, as well as treating his chronic cholecystitis. Patient wishes to proceed with surgery. Description of the procedure, risks, benefits, expected outcomes, and expected recovery were discussed with the patient in detail. We discussed the risks of bile leak and bile duct injury, liver/bowel injury, bleeding, and infection. Also discussed the possibility of having to convert to an open procedure if necessary. We will proceed once his pancreatitis improves. Will repeat labs and exam in the morning. Start clear liquids today and make NPO after midnight for possible surgery tomorrow. Continue IV fluids and analgesics. (2) Cholelithiasis: Qualifiers: Biliary obstruction: without biliary obstruction Cholecystitis presence: without cholecystitis Cholelithiasis location: gallbladder Qualified Code(s): K80.20 - Calculus of gallbladder without cholecystitis without obstruction Code(s): K80.20 - Calculus of gallbladder without cholecystitis without obstruction Status: Chronic Assessment and Plan: * Known history of cholelithiasis. He was scheduled to have a cholecystectomy about a year ago for chronic calculous cholecystitis. He deferred surgery at that time and attempted dietary and lifestyle modifications, which have helped. See plan above. (3) HTN (hypertension): Qualifiers: Hypertension type: primary hypertension Qualified Code(s): I10 - Essential (primary) hypertension Code(s): I10 - Essential (primary) hypertension Status: Chronic Assessment and Plan: * Management per hospitalist. (4) Marijuana use: Code(s): F12.90 - Cannabis use, unspecified, uncomplicated Status: Chronic Assessment and Plan: * Encouraged cessation Plan I have discussed the patient's case and plan of care with Dr. Alcantar. History of Present Illness Consult details Consult date: 12/09/24 Reason for consult: other (Gallstone pancreatitis) Requesting physician: Evon Lim APRN Narrative: This is a 34-year-old man with a history of hepatitis-C treated a year ago, known cholelithiasis, HTN, marijuana use, and previous alcohol abuse, who we have been asked to see in surgical consultation for gallstone pancreatitis. He had an onset of pain in the afternoon on Sunday, 4 days ago. He reports epigastric pain radiating across his entire upper abdomen and into his upper back. This pain is similar to previous episodes of pain that he experienced over a year ago. He was previously told this was related to his gallbladder and was actually scheduled to have a cholecystectomy about a year ago. Around that time, he was also diagnosed with hepatitis C and completed treatment. He decided to make dietary and lifestyle modifications to try to prevent further issues. He has not had any recurrent issues with pain for the past year. He denies a history of pancreatitis. He does report having heavy alcohol use, on a daily basis. He has been sober for 1 year. He reports having epigastric abdominal pain, nausea, and vomiting for the past 4 days. No alleviating or aggravating factors. He has not eaten in 2 days. He went to [facility] yesterday and was evaluated. [place] [address], troponin negative, LFTs normal, lipase 1012. Chest x-ray negative. CT scan of the abdomen and pelvis showed minimal fat stranding around the head of the pancreas which may indicate pancreatitis, and cholelithiasis. He was going to be transferred, but he decided to leave and drive himself because he was tired of waiting for the transfer. He was then re-evaluated at [facility] last night. He had a RUQ abdominal ultrasound that showed cholelithiasis but no gallbladder wall thickening or pericholecystic fluid. Positive sonographic Jerome sign, which may be related to gallbladder pathology or confounded by the inflammatory changes noted in the pancreatic head CT. Also noted was an echogenic liver, most commonly due to steatosis but could also be hepatitis and fibrosis, as well as a 7 mm adherent stone versus gallbladder polyp. Repeat labs this morning still show normal LFTs. No previous abdominal surgery. Reports dark urine, but denies any light-colored stools or jaundice. Review of Systems 2 Review of Systems: All systems reviewed & are unremarkable except as noted in HPI and below REPLACED BY [facility] Past Medical History Medical History (Updated 12/09/24 @ 11:16 by ROSEANNE Lacy) Marijuana use HTN (hypertension) Cholelithiasis Pancreatitis Hepatitis C Completed treatment in 2023 Surgical History Surgical History No pertinent past surgical history Social History Social History Smoking status: Never smoker Alcohol intake: former Substance use: current Substance use type: marijuana Last use: 12/08/24 Do You Feel Safe in your Home?: Yes Lack of Transportation: No Lack of Food: Never True Current Housing: I Have Housing Concerned About Future Housing: No Difficulty Paying Gas/Electric Bills: No Difficulty Paying for Meds: No Currently Unemployed: No Education: High School Diploma/GED Difficulty w/ Childcare or Family Care: No Spiritual care concerns: No Meds Home Medications and Allergies Home Medications ?Medication ?Instructions ?Recorded ?Confirmed ?Type omeprazole 20 mg capsule,delayed 20 mg PO DAILY 01/15/23 12/08/24 History release sertraline 100 mg tablet 100 mg PO DAILY 07/23/23 12/08/24 History lisinopril 5 mg tablet 5 mg PO DAILY 12/08/24 12/08/24 History Allergies Allergy/AdvReac Type Severity Reaction Status Date / Time No Known Allergies Allergy Verified 12/08/24 09:42 Vital Signs Vital Signs - 24 hr 12/08/24 14:56 12/08/24 19:12 12/08/24 22:25 Temperature 98.2 F 97.8 F Pulse Rate 68 60 56 L Respiratory Rate 17 16 15 Blood Pressure 162/97 H 136/80 136/88 Pulse Oximetry 98 100 97 Oxygen Delivery Room Air Room Air 12/09/24 00:30 12/09/24 04:55 12/09/24 10:43 Temperature 98.8 F 98.3 F 96.7 F L Pulse Rate 60 55 L 60 Respiratory Rate 20 20 18 Blood Pressure 145/78 H 140/75 146/96 H Pulse Oximetry 98 98 100 Oxygen Delivery Exam 2 Const: General: comfortable and no acute distress Nutritional Appearance: a verage body habitus Orientation/consciousness: patient oriented x3 HENMT: Head: normocephalic and atraumatic Ears: hearing grossly normal bilaterally Mouth: Yes moist mucous membranes Eyes: General: appearance normal, both eyes and all related structures P upils: Equal, round and reactive pupils present Neck: Neck: normal visual inspection and full ROM Resp: Effort & Inspection: no respiratory distress Auscultation: clear to auscultation bilaterally Cardio: Rate: regular rate Rhythm: regular rhythm Peripheral pulses: P eripheral pulses 2+ throughout GI: Inspection: non-distended, no scars and no visible herniation GI Palp: Yes Soft to palpation, Yes Tenderness to palpation present (GI) (Diffusely tender, but more prominent tenderness across the upper abdomen), Yes Guarding due to palpation present (GI) (In epigastric area), No Hernia present, No Palpable mass present (No palpable mass) and No Rebound tenderness present P ercussion: Yes normal to percussion Auscultation: normal bowel sounds R ectal Exam: deferred Skin: General skin exam: normal color Neuro: General: moves all extremities and no focal motor deficits Speech: n ormal speech Motor exam (neuro): 5/5 motor strength present throughout Extrem: General: normal to inspection and no edema Psych: Mental Status: mental status grossly normal Attitude: cooperative Insight: Good insight present (Psych) Judgement: Good judgement present (Psych) Results Labs 12/09/24 05:23 12/09/24 05:23 Labs: Abnormal lab results 12/09/24 Range/Units 05:23 WBC 10.6 H (4.5-10.0) K/mm3 Hgb 12.5 L (14.0-18.0) g/dL Hct 39.6 L (42.0-52.0) % MCH 25.4 L (26-34) pg MCHC 31.6 L (32-36) g/dl Neut % (Auto) 77.3 H (45.5-73.1) % Lymph % (Auto) 11.9 L (18.3-44.2) % [place] % (Auto) 9.0 H (2.6-8.5) % [place] # (Auto) 1.0 H (0.1-0.6) K/mm3 Abs Immat Gran (auto) 0.05 H (0.00-0.031) K/mm3 Absolute Neuts (auto) 8.2 H (1.3-6.7) K/mm3 Triglycerides 180 H (<150) mg/dL Cholesterol 226 H (0-200) mg/dL Diabetes panel 12/09/24 Range/Units 05:23 Sodium 138 (137-145) mmol/L Potassium 4.3 (3.4-5.0) mmol/L Chloride 107 (98-107) mmol/L Carbon Dioxide 22 (22-30) mmol/L BUN 18 (9-20) mg/dL Creatinine 1.21 (0.7-1.3) mg/dL Glucose 100 (65-110) mg/dL Calcium 9.0 (8.4-10.2) mg/dL AST 24 (17-59) U/L ALT 19 (6-50) U/L Alkaline Phosphatase 62 (38-126) U/L Total Protein 7.1 (6.3-8.2) g/dL Albumin 3.8 (3.5-5.1) g/dL Triglycerides 180 H (<150) mg/dL Calcium panel 12/09/24 Range/Units 05:23 Calcium 9.0 (8.4-10.2) mg/dL Albumin 3.8 (3.5-5.1) g/dL Pituitary panel 12/09/24 Range/Units 05:23 Sodium 138 (137-145) mmol/L Potassium 4.3 (3.4-5.0) mmol/L Chloride 107 (98-107) mmol/L Carbon Dioxide 22 (22-30) mmol/L BUN 18 (9-20) mg/dL Creatinine 1.21 (0.7-1.3) mg/dL Glucose 100 (65-110) mg/dL Calcium 9.0 (8.4-10.2) mg/dL Adrenal panel 12/09/24 Range/Units 05:23 Sodium 138 (137-145) mmol/L Potassium 4.3 (3.4-5.0) mmol/L Chloride 107 (98-107) mmol/L Carbon Dioxide 22 (22-30) mmol/L BUN 18 (9-20) mg/dL Creatinine 1.21 (0.7-1.3) mg/dL Glucose 100 (65-110) mg/dL Calcium 9.0 (8.4-10.2) mg/dL Total Bilirubin 0.8 (0.2-1.3) mg/dL AST 24 (17-59) U/L ALT 19 (6-50) U/L Alkaline Phosphatase 62 (38-126) U/L Total Protein 7.1 (6.3-8.2) g/dL Albumin 3.8 (3.5-5.1) g/dL All other labs normal.
[2024-12-09] MEDS: SERTRALINE HCL 50 MG TABLET 100 MG PO (11:28)
[2024-12-09] MEDS: PANTOPRAZOLE 40 MG TABLET PO (11:28)
[2024-12-09 14:54] LABS: Lipase 483 U/L (23-300)
[2024-12-09] MEDS: HYDROcodone/acetaminophen (*CRX) 5-325 MG TABLET 1 TAB PO (18:15)
[2024-12-10] VITALS (18 sets, daily range): BP systolic 129–183; BP diastolic 83–126; PULSE 54–105; RESP 12–18; TEMP 36.4–37.1; O2SAT 92–99
[2024-12-10 05:26] LABS: Hematocrit 37.3 % (42.0-52.0); Hemoglobin 11.8 g/dL (14.0-18.0); Mean Corpuscular HGB Conc 31.6 g/dl (32-36); Mean Corpuscular Hemoglobin 25.3 pg (26-34); Mean Corpuscular Volume 80.0 fl (80-100); Platelet Count Result 174 k/mm3 (150-375); Red Blood Count 4.66 M/mm3 (4.6-6.20); White Blood Count 7.9 K/mm3 (4.5-10.0)
[2024-12-10 05:37] LABS: INR 1.1; Prothrombin Time 13.9 Seconds (11.1-14.7)
[2024-12-10 05:38] LABS: Partial Thromboplastin Time 34.1 Seconds (22.3-36.8)
[2024-12-10 05:41] LABS: Alanine Aminotransferase 23 U/L (6-50); Albumin Level 3.5 g/dL (3.5-5.1); Alkaline Phosphatase 60 U/L (38-126); Anion Gap 5 mmol/L (4-12); Aspartate Amino Transferase 21 U/L (17-59); Bilirubin,Total 0.8 mg/dL (0.2-1.3); Blood Urea Nitrogen 14 mg/dL (9-20); Calcium 8.7 mg/dL (8.4-10.2); Carbon Dioxide 25 mmol/L (22-30); Chloride 109 mmol/L (98-107); Estimated CRCL calculation 100 ml/min; Estimated Glomerular Filt Rate > 60; Glucose 95 mg/dL (65-110); Lipase 133 U/L (23-300); Potassium 4.1 mmol/L (3.4-5.0); Sodium 139 mmol/L (137-145); Total Protein 6.8 g/dL (6.3-8.2)
[2024-12-10] MEDS: SODIUM CHLORIDE 0.9% IV 1,000 ML 125 ML IV CONT (07:39)
[2024-12-10] MEDS: SERTRALINE HCL 50 MG TABLET 100 MG PO (09:12)
--- NOTE | 2024-12-10 09:35 | WPDHPUPDATE1 ---
History and Physical Update Update Date/Time: 12/10/24 09:35 History and Physical has been reviewed, including an updated exam of the patient. There are NO changes in the patient's condition. Risks, benefits, and alternatives have been discussed and questions answered. Patient agrees to proceed with procedure.
[2024-12-10] MEDS: ONDANSETRON INJ 4 MG/2 ML VIAL IV PUSH ×3 (10:30→20:09)
[2024-12-10] MEDS: HYDROmorphone HCL INJ (*CRX) 2 MG/ML VIAL 0.5 MG IV PUSH ×3 (10:32→22:05)
[2024-12-10] MEDS: LACTATED RINGERS 1,000 ML 30 ML IV CONT ×2 (11:00→13:20)
[2024-12-10] MEDS: ACETAMINOPHEN 500 MG TABLET 1000 MG PO (11:00)
[2024-12-10] MEDS: KETOROLAC 15 MG/ML VIAL (*BKC) IV PUSH (11:00)
--- NOTE | 2024-12-10 11:31 | WPDANESEPPF ---
Anes - Initial Pre Proc Eval Procedure: Operation Date: 12/10/24 12:00 Proposed Procedures p Laparoscopic Cholecystectomy - Nicol Alcantar MD Date/Time: 12/10/24 11:31 Surgeon: Daniella Fuentes PA-C Pre Op Diagnosis: Gallstone pancreatitis Patient Data Age: 34 Gender: M Height: 1.78 m Weight: 105.5 kg Last Vital Signs Temp 37.1 C 12/10/24 11:09 Pulse 54 L 12/10/24 11:09 Resp 16 12/10/24 11:09 BP 133/98 H 12/10/24 11:09 Pulse Ox 98 12/10/24 11:09 O2 Del Method Room Air 12/10/24 08:00 Allergies Allergy/AdvReac Type Severity Reaction Status Date / Time No Known Allergies Allergy Verified 12/10/24 11:08 Home Medications ?Medication ?Instructions ?Recorded ?Confirmed ?Type omeprazole 20 mg capsule,delayed 20 mg PO DAILY 01/15/23 12/08/24 History release sertraline 100 mg tablet 100 mg PO DAILY 07/23/23 12/08/24 History lisinopril 5 mg tablet 5 mg PO DAILY 12/08/24 12/08/24 History Laboratory Tests 12/09/24 12/10/24 05:22 05:22 WBC 7.9 K/mm3 (4.5-10.0) RBC 4.66 M/mm3 (4.6-6.20) Hgb 11.8 L g/dL (14.0-18.0) Hct 37.3 L % (42.0-52.0) MCV 80.0 fl (80-100) MCH 25.3 L pg (26-34) MCHC 31.6 L g/dl (32-36) RDW 13.3 % (11.5-14.5) Plt Count 174 k/mm3 (150-375) MPV 9.7 fl (7.4-10.4) PT 13.9 Seconds (11.1-14.7) INR 1.1 APTT 34.1 Seconds (22.3-36.8) Sodium 139 mmol/L (137-145) Potassium 4.1 mmol/L (3.4-5.0) Chloride 109 H mmol/L (98-107) Carbon Dioxide 25 mmol/L (22-30) Anion Gap 5 mmol/L (4-12) BUN 14 mg/dL (9-20) Creatinine 1.10 mg/dL (0.7-1.3) Estim Creat Clear Calc 100 ml/min Estimated GFR > 60 (59 - ) Glucose 95 mg/dL (65-110) Calcium 8.7 mg/dL (8.4-10.2) Total Bilirubin 0.8 mg/dL (0.2-1.3) AST 21 U/L (17-59) ALT 23 U/L (6-50) Alkaline Phosphatase 60 U/L (38-126) Total Protein 6.8 g/dL (6.3-8.2) Albumin 3.5 g/dL (3.5-5.1) Lipase 483 H U/L 133 U/L (23-300) (23-300) Blood Type O Positive Antibody Screen Negative Patient hx anesthesia problems: none Family hx anesthesia problems: none Results Review: All pre-operative results and documents have been reviewed as part of the pre-operative evaluation. [facility] Past Medical History Medical History Marijuana use HTN (hypertension) Cholelithiasis Pancreatitis Hepatitis C Completed treatment in 2023 Surgical History Surgical History No pertinent past surgical history Social History Social History Smoking status: Never smoker Alcohol intake: former Substance use: current Substance use type: marijuana Last use: 12/08/24 Do You Feel Safe in your Home?: Yes Lack of Transportation: No Lack of Food: Never True Current Housing: I Have Housing Concerned About Future Housing: No Difficulty Paying Gas/Electric Bills: No Difficulty Paying for Meds: No Currently Unemployed: No Education: High School Diploma/GED Difficulty w/ Childcare or Family Care: No Spiritual care concerns: No Anes - Eval Final PreProcedure Day of Procedure 12/10/24 11:31 Patient weight: obese Heart: regular rate and rhythm Lungs: clear to auscultation Airway: Mallampati scale class II Neurological: alert and oriented Last oral intake: >/= 8 hours ASA classification: III Emergent: no Anesthetic plan: proceed Anesthesia type and monitoring: general ETT and standard monitoring Results Review: All pre-operative results and documents have been reviewed as part of the pre-operative evaluation. Informed Consent: The patient's anesthetic plan and its attendant risks and benefits were discussed with the patient/family/POA. Questions were solicited and answers provided to the satisfaction of the patient/family/POA.
[2024-12-10] MEDS: ceFAZolin 2 GM/D5W 50 ML 2 GM/50 ML BAG IVPB (12:05)
[2024-12-10] MEDS: BUPIVACAINE/EPINEPHRINE 0.5% 50 ML VIAL 30 ML INFILTRATE (12:30)
--- NOTE | 2024-12-10 12:32 | S_PTH ---
PATIENT: Ronnie Crawford LOC: [id number] U#:[id number] AGE/SX: 34/M ROOM: 344 RE12/09/[address]: Margi Castellanos APRN : [id number] BED: 01 DIS: 12/11/2024 SPEC #: [id number] RECD: 12/10/24 13:30 STATUS: LASHELL REQ #: [id number] JAYY: 12/10/24 12:[address]: Nicol Alcantar DEPT: [facility] Surgical RECD BY: Sivan Storm ENTERED: 12/10/24 13:30 SP TYPE: Surgical OTHR DR: Emeterio Lujan, JAY Ríos MD Tissues: A - Gallbladder Procedures: Hematoxylin and Eosin Stain Gross and Microscopic Level 3
--- NOTE | 2024-12-10 13:04 | W.PM.PROC2 ---
Procedure Note - Detailed Date of Procedure 12/10/24 Pre-op Diagnosis Acute biliary pancreatitis Post-op Diagnosis Same Procedure Performed Laparoscopic cholecystectomy Surgeon Nicol Alcantar MD Anesthesia General Indications 34-year-old male presenting with acute biliary pancreatitis. Patient now set up for interval cholecystectomy. Findings Acute cholecystitis Description of Procedure The patient was taken to the operating room placed in the supine position. After adequate induction of general anesthesia, the patient was prepped and draped in normal sterile fashion. A time-out was then performed to verify the patient's identity as well as the procedure being performed. I then made a 5 mm incision in the infraumbilical region. Through this, a Veress needle was placed into the peritoneal cavity and CO2 gas was then insufflated. After adequate pneumoperitoneum was achieved, the Veress needle was removed and a 5 mm optiview trocar was placed through this incision under direct visualization. I then placed the laparoscope through this trocar site and under direct visualization placed a further 12 mm subxiphoid port as well as 2 additional 5 mm ports in the right upper abdomen. The gallbladder was then identified and was noted to be inflamed, distended. I was able to place a grasper at the dome of the gallbladder and this was retracted anterior and cephalad up over the liver. A 2nd retractor was then placed at the infundibulum and retracted laterally, this allowed visualization of the triangle of Calot. I then was able to visualize the cystic duct in its entirety from its proximal insertion into the gallbladder, to its distal junction with the common hepatic/common bile duct junction. At this point, I carefully skeletonized the proximal cystic duct with the [place] dissector. I then clipped and transected the proximal cystic duct. Next I visualized the cystic artery. Again the artery was skeletonized, clipped, and transected. I then used the Bovie cautery to take down the peritoneal attachments of the gallbladder off the liver bed. This was somewhat difficult given the amount of inflammation in the posterior space. Once the gallbladder specimen was completely detached, an endo-pouch was placed through the 12 mm port site. I then placed the gallbladder specimen into the Endo pouch and removed the endo-pouch from the 12 mm port site. The specimen will now be sent to pathology for further review. I then copiously irrigated the right upper quadrant. Some mild oozing was noted in the liver bed and this was controlled with the bovie cautery. Hemostasis was noted in the liver bed, the clips were noted to be in good position on both the cystic duct stump and the cystic artery stump. No other pathology was noted in the right upper quadrant. I then moved the laparoscope to the subxiphoid port. No iatrogenic injury or other pathology was noted in the lower abdomen. I then closed the 12 mm trocar site under direct visualization using the Jules cone and 0 Vicryl suture. At this point, the abdomen was desufflated and all ports removed. All port sites were then closed with 4.O Monocryl subcuticular sutures. Dermabond was placed on each incision. The patient tolerated the procedure well, was extubated in the operating room postoperative and will be transferred to the recovery room in stable condition Estimated Blood Loss 20 Drains No Packing No Pathology Yes Complications No immediate complications Condition Stable Disposition PACU [facility] Billing Surgery - Charge Forward: Surgery Billing
[2024-12-10] MEDS: fentaNYL CITRATE INJ (*CRX) 100 MCG/2 ML VIAL 25 MCG IV PUSH ×8 (13:40→14:37)
--- NOTE | 2024-12-10 15:27 | PM.IMPN ---
Progress Note: A&P Assessment and Plan (1) Acute pancreatitis: Qualifiers: Acute pancreatitis complication: no infection or necrosis Pancreatitis type: unspecified pancreatitis type Qualified Code(s): K85.90 - Acute pancreatitis without necrosis or infection, unspecified Code(s): K85.90 - Acute pancreatitis without necrosis or infection, unspecified Status: Acute Assessment and Plan: CT abd/pelvis: Minimal fat stranding around the head of the pancreas which may indicate pancreatitis. Cholelithiasis. RUQ US: Echogenic liver, most commonly due to steatosis but also can be seen with hepatitis and fibrosis. Cholelithiasis. No gallbladder wall thickening or pericholecystic fluid. Positive sonographic Jerome sign, which may related to gallbladder pathology or confounded by the inflammatory changes noted in the pancreatic head CT. 7 mm adherent stone versus gallbladder polyp. - acute on chronic, initially due to alcohol use, however concern for gallbladder etiology currently. previous ETOH abuse, currently sober for 1 year - IV fluids: 1L bolus -> 125 mL/hour - trend lipase, currently: 1012. Repeat lipase ordered. - AST, ALT, alk phos within normal limits. Monitor. - pain control with Tylenol, [place], Dilaudid - Phenergan prn for nausea - clear liquids with plan for lap willard tomorrow with dr. alcantar /- laparoscopic cholecystectomy today (2) Cholelithiasis: Qualifiers: Biliary obstruction: without biliary obstruction Cholecystitis presence: without cholecystitis Cholelithiasis location: gallbladder Qualified Code(s): K80.20 - Calculus of gallbladder without cholecystitis without obstruction Code(s): K80.20 - Calculus of gallbladder without cholecystitis without obstruction Status: Chronic Assessment and Plan: CT abd/pelvis: Minimal fat stranding around the head of the pancreas which may indicate pancreatitis. Cholelithiasis. RUQ US: Echogenic liver, most commonly due to steatosis but also can be seen with hepatitis and fibrosis. Cholelithiasis. No gallbladder wall thickening or pericholecystic fluid. Positive sonographic Jerome sign, which may related to gallbladder pathology or confounded by the inflammatory changes noted in the pancreatic head CT. 7 mm adherent stone versus gallbladder polyp. - IV pain management: IV Dilaudid 0.5 mg PRN - Gentle IV fluid resuscitation - Diet: clear liquid diet, NPO at midnight - Monitor vital signs, I and O's, check stool output, neuro status and patient is a fall risk - Monitor serum electrolytes and CBC - Monitor lactic acid - General surgery consulted plan for lap willard tomorrow with Dr. Alcantar ------ 12/10 see above (3) HTN (hypertension): Qualifiers: Hypertension type: primary hypertension Qualified Code(s): I10 - Essential (primary) hypertension Code(s): I10 - Essential (primary) hypertension Status: Chronic Assessment and Plan: Chronic, continue home medications - Lisinopril 5 mg daily - blood pressures remain stable, continue to monitor Time Spent With Patient Time with patient: 25 - 35 minutes Subjective Date/time seen: 12/10/24 15:27 Interval history: 34 year old male with past medical history of hepatitis-C, heavy alcohol use, and pancreatitis presents to the hospital with abdominal pain. 12/10- laparoscopic cholecystectomy today Review of Systems Review of Systems: All systems reviewed & are unremarkable except as noted in HPI and below Exam Narrative: General: male in no acute respiratory distress who is nontoxic appearing, sitting up in bed. HEENT: Normocephalic. Atraumatic. Extraocular movement intact. Sclera clear and anicteric. No facial asymmetry. Chest: Lungs are clear to auscultation bilaterally. No wheezes or crackles. CV: Heart was regular rate and rhythm. S1/S2. No murmurs, gallops, or rubs. Abd: Abdomen was soft. Diffusely tender, more to RUQ and epigastric region without guarding. Nondistended. Positive bowel sounds. Ext: No clubbing, cyanosis, or edema. Neuro: Patient is alert and oriented x4. Speech is clear. Const: General: comfortable and no acute distress Other: , male, nontoxic appearance HENMT: Face/Nose/Sinus: Normal nares present Mouth: Yes moist mucous membranes Eyes: General: appearance normal, both eyes and all related structures Sclera: sclerae normal Pupils: Equal, round and reactive pupils present EOM: EOMs intact bilaterally Resp: Effort & Inspection: normal respiratory effort Auscultation: clear to auscultation bilaterally Cardio: Rate: regular rate Rhythm: regular rhythm Other: S1-S2 present without murmur, rub, ectopy GI: Other: Abdomen soft, nondistended. Tender in the epigastric and right upper quadrant. Normoactive bowel sounds in all quadrants. No hepatomegaly or splenomegaly appreciated. Skin: General skin exam: normal color and no rashes or lesions noted Wounds: no wounds Neuro: Cranial nerves: Yes Equal, round and reactive pupils present Speech: normal speech Motor exam (neuro): 5/5 motor strength present throughout Sensory Exam: normal sensation Other: A&O x4 Extrem: General: normal to inspection Psych: Mental Status: mental status grossly normal Affect: normal affect Other: Good insight and judgment, pleasant Objective Data Vital Signs Vital Signs: Vital Signs - 24 hr 12/09/24 20:00 12/09/24 20:00 12/09/24 23:59 Temperature 98.0 F 97.0 F L Pulse Rate 73 55 L Respiratory Rate 17 14 Blood Pressure 154/88 H 142/78 H Pulse Oximetry 97 97 Oxygen Delivery Room Air Oxygen Flow Rate 12/10/24 04:00 12/10/24 08:00 12/10/24 11:09 Temperature 97.9 F 98.8 F Pulse Rate 59 L 54 L Respiratory Rate 16 16 Blood Pressure 129/83 133/98 H Pulse Oximetry 97 98 Oxygen Delivery Room Air Oxygen Flow Rate 12/10/24 13:05 12/10/24 13:20 12/10/24 13:35 Temperature 97.5 F L Pulse Rate 105 H 84 82 Respiratory Rate 18 18 18 Blood Pressure 181/99 H 154/89 H 172/107 H Pulse Oximetry 95 98 99 Oxygen Delivery Simple Face Mask Room Air Room Air Oxygen Flow Rate 8 12/10/24 13:50 12/10/24 14:05 12/10/24 14:20 Temperature Pulse Rate 88 79 82 Respiratory Rate 16 12 18 Blood Pressure 162/110 H 164/104 H 183/112 H Pulse Oximetry 96 94 93 Oxygen Delivery Nasal Cannula Nasal Cannula Nasal Cannula Oxygen Flow Rate 2 2 2 12/10/24 14:35 12/10/24 14:50 12/10/24 14:52 Temperature Pulse Rate 77 76 73 Respiratory Rate 14 18 Blood Pressure 179/126 H 157/98 H Pulse Oximetry 95 94 Oxygen Delivery Nasal Cannula Nasal Cannula Oxygen Flow Rate 2 2 12/10/24 15:05 Temperature Pulse Rate 58 L Respiratory Rate 14 Blood Pressure 142/105 H Pulse Oximetry 92 Oxygen Delivery Nasal Cannula Oxygen Flow Rate 2 Intake/Output Intake/Output: Intake & Output 12/07/24 12/08/24 12/09/24 12/10/24 23:59 23:59 23:59 23:59 Intake Total 1000 4013.3 2043.8 Output Total 2300 Balance 1000 1713.3 2043.8 Meds/Results Medications: Active Medications Generic Name Dose Route Start Last Admin Trade Name Freq PRN Reason Stop Dose Admin Acetaminophen 650 mg 12/08/24 23:24 12/09/24 04:42 Acetaminophen 325 Mg Tablet PO 650 mg Q4H PRN Administration Mild Pain (1-3) or Fever Hydrocodone Bitart/Acetaminophen 1 tab 12/08/24 23:24 12/09/24 18:15 Hydrocodone/Acetaminophen (*Crx) 5-325 Mg Tablet PO 1 tab Q4H PRN Administration Pain Rated 4-6 Hydromorphone HCl 0.5 mg 12/08/24 23:18 12/10/24 10:32 Hydromorphone Hcl Inj (*Crx) 2 Mg/Ml Vial IV PUSH 0.5 mg Q3H PRN Administration Pain Rated 7-10 Lisinopril 5 mg 12/09/24 09:00 12/09/24 11:27 Lisinopril 5 Mg Tablet PO 5 mg DAILY SERJIO Administration Ondansetron HCl 4 mg 12/08/24 23:25 12/10/24 10:30 Ondansetron Inj 4 Mg/2 Ml Vial IV PUSH 4 mg Q6H PRN Administration Nausea And Vomiting Pantoprazole Sodium 40 mg 12/09/24 09:00 12/10/24 09:07 Pantoprazole 40 Mg Tablet PO Not Given QAM SERJIO Promethazine HCl 12.5 mg 12/09/24 07:20 12/09/24 23:41 Promethazine Hcl 25 Mg/Ml Ampul IV PUSH 12.5 mg Q4H PRN Administration Nausea And Vomiting Sertraline HCl 100 mg 12/09/24 09:00 12/10/24 09:12 Sertraline Hcl 50 Mg Tablet PO 100 mg DAILY SERJIO Administration Radiology Results: ITS Impressions Upper Quadrant Ultrasound 12/08/24 19:40 IMPRESSION: Echogenic liver, most commonly due to steatosis but also can be seen with hepatitis and fibrosis. Cholelithiasis. No gallbladder wall thickening or pericholecystic fluid. Positive sonographic Jerome sign, which may related to gallbladder pathology or confounded by the inflammatory changes noted in the pancreatic head CT. 7 mm adherent stone versus gallbladder polyp. Labs Labs: Laboratory Results - last 24 hr 12/10/24 05:22 WBC 7.9 RBC 4.66 Hgb 11.8 L Hct 37.3 L MCV 80.0 MCH 25.3 L MCHC 31.6 L RDW 13.3 Plt Count 174 MPV 9.7 PT 13.9 INR 1.1 APTT 34.1 Sodium 139 Potassium 4.1 Chloride 109 H Carbon Dioxide 25 Anion Gap 5 BUN 14 Creatinine 1.10 Estim Creat Clear Calc 100 Estimated GFR > 60 Glucose 95 Calcium 8.7 Total Bilirubin 0.8 AST 21 ALT 23 Alkaline Phosphatase 60 Total Protein 6.8 Albumin 3.5 Lipase 133 Blood Type O Positive Antibody Screen Negative Quality VTE Prophylaxis VTE prophylaxis: mechanical ordered
[2024-12-10] MEDS: PROMETHAZINE HCL 25 MG/ML AMPUL 12.5 MG IV PUSH (15:34)
[2024-12-10] MEDS: HYDROcodone/acetaminophen (*CRX) 5-325 MG TABLET 1 TAB PO (20:09)
[2024-12-10] MEDS: MELATONIN 5 MG TABLET PO (22:10)
[2024-12-11] VITALS: BP 132/79; PULSE 57; RESP 18; TEMP 36.6; O2SAT 99
[2024-12-11] MEDS: HYDROmorphone HCL INJ (*CRX) 2 MG/ML VIAL 0.5 MG IV PUSH (02:19)
[2024-12-11] MEDS: PROMETHAZINE HCL 25 MG/ML AMPUL 12.5 MG IV PUSH (02:19)
[2024-12-11 04:00] VITALS: BP 130/89; PULSE 50; RESP 18; TEMP 36.7; O2SAT 99
[2024-12-11 06:08] LABS: Hematocrit 37.5 % (42.0-52.0); Hemoglobin 11.9 g/dL (14.0-18.0); Mean Corpuscular HGB Conc 31.7 g/dl (32-36); Mean Corpuscular Hemoglobin 25.5 pg (26-34); Mean Corpuscular Volume 80.3 fl (80-100); Platelet Count Result 196 k/mm3 (150-375); Red Blood Count 4.67 M/mm3 (4.6-6.20); White Blood Count 9.0 K/mm3 (4.5-10.0)
[2024-12-11 06:17] LABS: Alanine Aminotransferase 33 U/L (6-50); Albumin Level 3.6 g/dL (3.5-5.1); Alkaline Phosphatase 57 U/L (38-126); Anion Gap 7 mmol/L (4-12); Aspartate Amino Transferase 34 U/L (17-59); Bilirubin,Total 0.5 mg/dL (0.2-1.3); Blood Urea Nitrogen 13 mg/dL (9-20); Calcium 9.1 mg/dL (8.4-10.2); Carbon Dioxide 27 mmol/L (22-30); Chloride 106 mmol/L (98-107); Estimated CRCL calculation 91 ml/min; Estimated Glomerular Filt Rate > 60; Glucose 96 mg/dL (65-110); Potassium 4.2 mmol/L (3.4-5.0); Sodium 140 mmol/L (137-145); Total Protein 6.8 g/dL (6.3-8.2)
[2024-12-11] MEDS: ONDANSETRON INJ 4 MG/2 ML VIAL IV PUSH (06:58)
[2024-12-11] MEDS: HYDROcodone/acetaminophen (*CRX) 5-325 MG TABLET 1 TAB PO (06:58)
[2024-12-11] MEDS: SERTRALINE HCL 50 MG TABLET 100 MG PO (08:30)
[2024-12-11] MEDS: PANTOPRAZOLE 40 MG TABLET PO (08:30)
--- NOTE | 2024-12-11 08:40 | P.DS_ITS ---
DS: Admitting Diagnosis Discharge Date 12/11 Admitting Diagnosis abd pain, gallstones DS: Discharge Diagnosis Discharge Diagnosis (1) Acute pancreatitis: Qualifiers: Acute pancreatitis complication: no infection or necrosis Pancreatitis type: unspecified pancreatitis type Qualified Code(s): K85.90 - Acute pancreatitis without necrosis or infection, unspecified Code(s): K85.90 - Acute pancreatitis without necrosis or infection, unspecified Status: Acute (2) Cholelithiasis: Qualifiers: Biliary obstruction: without biliary obstruction Cholecystitis presence: without cholecystitis Cholelithiasis location: gallbladder Qualified Code(s): K80.20 - Calculus of gallbladder without cholecystitis without obstruction Code(s): K80.20 - Calculus of gallbladder without cholecystitis without obstruction Status: Chronic (3) HTN (hypertension): Qualifiers: Hypertension type: primary hypertension Qualified Code(s): I10 - Essential (primary) hypertension Code(s): I10 - Essential (primary) hypertension Status: Chronic DS: Summary Hospital Course Hospital Course: 34 year old male with past medical history of hepatitis-C, heavy alcohol use, and pancreatitis presents to the hospital with abdominal pain. # Cholelithiasis CT abd/pelvis: Minimal fat stranding around the head of the pancreas which may indicate pancreatitis. Cholelithiasis. RUQ US: Echogenic liver, most commonly due to steatosis but also can be seen with hepatitis and fibrosis. Cholelithiasis. No gallbladder wall thickening or pericholecystic fluid. Positive sonographic Jerome sign, which may related to gallbladder pathology or confounded by the inflammatory changes noted in the pancreatic head CT. 7 mm adherent stone versus gallbladder polyp. - IV pain management: IV Dilaudid 0.5 mg PRN - Gentle IV fluid resuscitation 12/10- laparoscopic cholecystectomy today with Dr. Reis 12/10 diet was advanced per surgery and pt tolerated it well. NO acute events overnight. Ok for discharge per surgery. Pain rx sent and f/u instructions provided per surgery Status at Discharge Functional status at discharge: independent ambulation Overall status at discharge: patient is back to baseline Time Spent with Patient Time attestation: Total time spent providing and/or coordinating discharge services: Time spent: Greater than 30 minutes Exam Narrative: General: male in no acute respiratory distress who is nontoxic appearing, sitting up in bed. HEENT: Normocephalic. Atraumatic. Extraocular movement intact. Sclera clear and anicteric. No facial asymmetry. Chest: Lungs are clear to auscultation bilaterally. No wheezes or crackles. CV: Heart was regular rate and rhythm. S1/S2. No murmurs, gallops, or rubs. Abd: Abdomen was soft. Nondistended. Positive bowel sounds. Ext: No clubbing, cyanosis, or edema. Neuro: Patient is alert and oriented x4. Speech is clear. Const: General: comfortable and no acute distress Other: , male, nontoxic appearance HENMT: Face/Nose/Sinus: Normal nares present Mouth: Yes moist mucous mem branes Eyes: General: appearance normal, both eyes and all related structures Sclera: sclerae normal Pupils: Equal, round and reactive pupils present EOM: EOMs intact bilaterally Resp: Effort & Inspection: normal respiratory effort Auscultation: clear to auscultation bilaterally Cardio: Rate: regular rate Rhythm: regular rhythm Other: S1-S2 present without murmur, rub, ectopy GI: Other: Abdomen soft, nondistended. Tender in the epigastric and right upper quadrant. Normoactive bowel sounds in all quadrants. No hepatomegaly or splenomegaly appreciated. Skin: General skin exam: normal color and no rashes or lesions noted Wounds: no wounds Neuro: Cranial nerves: Yes Equal, round and reactive pupils present Speech: normal speech Motor exam (neuro): 5/5 motor strength present throughout Sensory Exam: normal sensation Other: A&O x4 Extrem: General: normal to inspection Psych: Mental Status: mental status grossly normal Affect: normal affect Other: Good insight and judgment, pleasant DS: Data Data Completed and Pending Pending studies at discharge: Pending at discharge 12/10/24 12:32 Surgical [PTH] Routine Labs on day of discharge: Labs from last 24 hours 12/11/24 05:43 WBC 9.0 RBC 4.67 Hgb 11.9 L Hct 37.5 L MCV 80.3 MCH 25.5 L MCHC 31.7 L RDW 13.4 Plt Count 196 MPV 10.1 Sodium 140 Potassium 4.2 Chloride 106 Carbon Dioxide 27 Anion Gap 7 BUN 13 Creatinine 1.22 Estim Creat Clear Calc 91 Estimated GFR > 60 Glucose 96 Calcium 9.1 Total Bilirubin 0.5 AST 34 ALT 33 Alkaline Phosphatase 57 Total Protein 6.8 Albumin 3.6 Discharge Plan Discharge Attending physician on discharge: Caro Seaman Consulting providers: Nicol Reis Discharging Clinician: Margi Castellanos Patient Disposition: Home Activity: may shower Diet: as tolerated Wound Care Instructions: incision open to air Discharge Instructions: DISCHARGE INSTRUCTION SHEET FOR HERNIA, GALLBLADDER AND APPENDIX SURGERIES DR. REIS PATIENT TO TAKE HOME 1. May shower in 24 hours, no soaking in bath x 2weeks. 2. Call office for: * Wound increasingly painful or bleeding * Vomiting * Fever of greater than 101 degrees 3. If no bowel movement for three days, take 1 oz. (30 ml) Milk of Magnesia or MiraLax 17g 1 to 2 times daily. 4. No heavy lifting > 10-15 pounds x 6 weeks for hernia repairs and 2 weeks for laparoscopic cholecystectomy or appendectomy. 5. No driving for 3 days or while taking narcotic pain medications. 6. Ice to surgical site for 48 hours (30 min on, then 30 min off). 7. Up walking 10-30 minutes three times per day. 8. Resume previous home medications. 9. Follow-up 10-14 days in office for wound check or as previously scheduled. ([phone]) 10. Oral pain medications prescription to be sent to pharmacy. Take Tylenol 500mg every 6 hours and Ibuprofen 600mg every 6 hours for the first 2 days, then as needed. 11. NUTRITION: Start out by drinking fluids and increase your diet as tolerated. If you experience nausea, try dry toast, crackers, and 7-UP. If nausea or vomiting persists, contact your surgeon?s office. 12. Gallbladders-Low Fat Diet for 2 weeks (send care note of low fat diet) 13. Inguinal Hernias-wear scrotal support for 48 hours 14. Abdominal Hernias-if sent home with abdominal binder, wear for the first 2 weeks (may remove to shower or at night to sleep). Revised 06/2020 Patient Instructions: Antibiotic Form Patient Language: Polish Stand Alone Forms: General Discharge Information Follow-up/Referrals: Nicol Reis MD [Physician] - 2 Weeks Discharge Medications: New hydrocodone-acetaminophen 5-325 mg tablet 1 tablet PO Q6H PRN (Reason: pain) Qty: 20 0RF Continued omeprazole 20 mg Capsule,Delayed Release(Dr/Ec) 20 mg PO DAILY sertraline 100 mg tablet 100 mg PO DAILY lisinopril 5 mg tablet 5 mg PO DAILY Date of admission: 12/09/24 08:31 Primary Care Provider: TaiEmeterio Admitting Provider: Thong Mcintosh Attending physician on admission: Daniella Fuentes Condition: Stable Quality VTE Prophylaxis VTE prophylaxis: mechanical ordered Hospitalist MIPS Heart Failure (Exclusion) Patient has history of Heart Transplant or Left Ventricular Assistive Device?: No IF YES, STOP HERE Heart Failure (Qualifier) Patient has current or prior documentation of LVEF less than or equal to 40%, or mod/servere depressed LVSF?: No IF NO, STOP HERE
--- NOTE | 2024-12-11 08:55 | PM.PNGS ---
Progress Note: A&P Assessment and Plan (1) Acute pancreatitis: Qualifiers: Acute pancreatitis complication: no infection or necrosis Pancreatitis type: unspecified pancreatitis type Qualified Code(s): K85.90 - Acute pancreatitis without necrosis or infection, unspecified Code(s): K85.90 - Acute pancreatitis without necrosis or infection, unspecified Status: Acute Assessment and Plan: s/p interval willard, doing well, ok to dc home c routine postop care and po analgesia, f/u 2 wks Subjective Subjective Date/Time Seen: 12/11/24 08:55 Interval history: feels good, minimal incisional soreness Review of Systems Review of Systems: All systems reviewed & are unremarkable except as noted in HPI and below Exam GI: Inspection: normal to inspection, non-distended and incision GI Palp: Yes abdominal tenderness and Yes Soft to palpation Objective Data Vital Signs Vital Signs: Vital Signs - 24 hr 12/10/24 11:09 12/10/24 13:05 12/10/24 13:20 Temperature 37.1 C 36.4 C L Pulse Rate 54 L 105 H 84 Respiratory Rate 16 18 18 Blood Pressure 133/98 H 181/99 H 154/89 H Pulse Oximetry 98 95 98 Oxygen Delivery Simple Face Mask Room Air Oxygen Flow Rate 8 12/10/24 13:35 12/10/24 13:50 12/10/24 14:05 Temperature Pulse Rate 82 88 79 Respiratory Rate 18 16 12 Blood Pressure 172/107 H 162/110 H 164/104 H Pulse Oximetry 99 96 94 Oxygen Delivery Room Air Nasal Cannula Nasal Cannula Oxygen Flow Rate 2 2 12/10/24 14:20 12/10/24 14:35 12/10/24 14:50 Temperature Pulse Rate 82 77 76 Respiratory Rate 18 14 18 Blood Pressure 183/112 H 179/126 H 157/98 H Pulse Oximetry 93 95 94 Oxygen Delivery Nasal Cannula Nasal Cannula Nasal Cannula Oxygen Flow Rate 2 2 2 12/10/24 14:52 12/10/24 15:05 12/10/24 15:35 Temperature 36.7 C Pulse Rate 73 58 L 78 Respiratory Rate 14 18 Blood Pressure 142/105 H 149/108 H Pulse Oximetry 92 93 Oxygen Delivery Nasal Cannula Oxygen Flow Rate 2 12/10/24 15:54 12/10/24 16:20 12/10/24 17:36 Temperature 36.7 C 36.7 C 36.5 C Pulse Rate 85 79 80 Respiratory Rate 18 18 18 Blood Pressure 157/102 H 147/96 H 155/105 H Pulse Oximetry 94 93 98 Oxygen Delivery Oxygen Flow Rate 12/10/24 19:07 12/10/24 20:00 12/10/24 20:00 Temperature 36.8 C Pulse Rate 65 Respiratory Rate 18 Blood Pressure 149/102 H 157/85 H Pulse Oximetry 98 Oxygen Delivery Room Air Oxygen Flow Rate 12/11/24 00:00 12/11/24 04:00 Temperature 36.6 C 36.7 C Pulse Rate 57 L 50 L Respiratory Rate 18 18 Blood Pressure 132/79 130/89 Pulse Oximetry 99 99 Oxygen Delivery Oxygen Flow Rate Intake/Output Intake/Output: Intake & Output 12/08/24 12/09/24 12/10/24 12/11/24 23:59 23:59 23:59 23:59 Intake Total 1000 4013.3 2643.8 Output Total 2300 Balance 1000 1713.3 2643.8 Meds/Results Medications: Active Medications Generic Name Dose Route Start Last Admin Trade Name Freq PRN Reason Stop Dose Admin Acetaminophen 650 mg 12/08/24 23:24 12/09/24 04:42 Acetaminophen 325 Mg Tablet PO 650 mg Q4H PRN Administration Mild Pain (1-3) or Fever Hydrocodone Bitart/Acetaminophen 1 tab 12/08/24 23:24 12/11/24 06:58 Hydrocodone/Acetaminophen (*Crx) 5-325 Mg Tablet PO 1 tab Q4H PRN Administration Pain Rated 4-6 Hydromorphone HCl 0.5 mg 12/08/24 23:18 12/11/24 02:19 Hydromorphone Hcl Inj (*Crx) 2 Mg/Ml Vial IV PUSH 0.5 mg Q3H PRN Administration Pain Rated 7-10 Lisinopril 5 mg 12/09/24 09:00 12/11/24 08:30 Lisinopril 5 Mg Tablet PO 5 mg DAILY SERJIO Administration Melatonin 5 mg 12/10/24 22:03 12/10/24 22:10 Melatonin 5 Mg Tablet PO 5 mg HS PRN Administration insomnia Ondansetron HCl 4 mg 12/08/24 23:25 12/11/24 06:58 Ondansetron Inj 4 Mg/2 Ml Vial IV PUSH 4 mg Q6H PRN Administration Nausea And Vomiting Pantoprazole Sodium 40 mg 12/09/24 09:00 12/11/24 08:30 Pantoprazole 40 Mg Tablet PO 40 mg QAM SERJIO Administration Promethazine HCl 12.5 mg 12/09/24 07:20 12/11/24 02:19 Promethazine Hcl 25 Mg/Ml Ampul IV PUSH 12.5 mg Q4H PRN Administration Nausea And Vomiting Sertraline HCl 100 mg 12/09/24 09:00 12/11/24 08:30 Sertraline Hcl 50 Mg Tablet PO 100 mg DAILY SERJIO Administration Radiology Results: ITS Impressions Upper Quadrant Ultrasound 12/08/24 19:40 IMPRESSION: Echogenic liver, most commonly due to steatosis but also can be seen with hepatitis and fibrosis. Cholelithiasis. No gallbladder wall thickening or pericholecystic fluid. Positive sonographic Jerome sign, which may related to gallbladder pathology or confounded by the inflammatory changes noted in the pancreatic head CT. 7 mm adherent stone versus gallbladder polyp. Labs Labs: Laboratory Results - last 24 hr 12/11/24 05:43 WBC 9.0 RBC 4.67 Hgb 11.9 L Hct 37.5 L MCV 80.3 MCH 25.5 L MCHC 31.7 L RDW 13.4 Plt Count 196 MPV 10.1 Sodium 140 Potassium 4.2 Chloride 106 Carbon Dioxide 27 Anion Gap 7 BUN 13 Creatinine 1.22 Estim Creat Clear Calc 91 Estimated GFR > 60 Glucose 96 Calcium 9.1 Total Bilirubin 0.5 AST 34 ALT 33 Alkaline Phosphatase 57 Total Protein 6.8 Albumin 3.6
== END 2024-12-11 08:45 | disposition home or self-care (01) | DRG 263 ==
LOC: ANHED 19:02 → ANH3MED 22:30
PROVIDERS: Nurse Practitioner Family; Student in an Organized Health Care Education/Training Program; Surgery; Admitting Provider Internal Medicine; Emergency Provider Physician Assistant; PCP Physician Assistant; Visit Provider Nurse Practitioner
PROC: 0FT44ZZ Resection of Gallbladder, Percutaneous Endoscopic Approach (ICD-10-PCS; CPT 47562; principal; 2024-12-10 12:00)
DX: K85.10 Biliary acute pancreatitis without necrosis or infection (principal); K80.20 Calculus of gallbladder without cholecystitis without obstruction; I10 Essential (primary) hypertension; B19.20 Unspecified viral hepatitis C without hepatic coma; F12.90 Cannabis use, unspecified, uncomplicated; F10.90 Alcohol use, unspecified, uncomplicated
CPT/HCPCS: 36415; 76705; 80053; 80061; 83690; 83735; 85025; 85027; 85610; 85730; 86850; 86900; 86901; 88304; 96361; 96374; 96375; 96376; 99285; A9270; G0378; G0379; J0690; J1100; J1171; J1200; J1596; J1885; J2003; J2250; J2270; J2405; J2550; J2704; J2765; J3010; J7030; J7120

== ENCOUNTER 2025-04-07 07:12 | Outpatient (CLI) | payer OTHER, SELFPAY ==
--- NOTE | ~2025-04-07 | US_ITS ---
ULTRASOUND ABDOMEN LIMITED (RIGHT UPPER QUADRANT) Clinical History: HEPATITIS C Comparison: ultrasound 12/08/2024 CT 12/08/2024 Technique: Right upper quadrant sonography Findings: Liver: Enlarged. Echogenic. No intrahepatic biliary ductal dilatation. Normal hepatopedal flow main portal vein. Common Duct: Normal caliber. 4 mm. Gallbladder: No stone identified, as seen on prior CT. No wall thickening. No pericholecystic fluid. Pancreas: Obscured by bowel gas. IMPRESSION: 1. Hepatomegaly, with steatosis and/or hepatocellular disease. Reviewed, dictated and finalized at location R.
--- OUTSIDE RECORDS SUMMARY | 2025-04-07 07:16 | XMS_ITS | Clinical Summary ---
Author Organization [facility] Address [id number] [place] [address] Care Team Providers Care Harp Regulator Name Role Phone Scott Suresh MD Primary Care Provider [phone] Allergies No known active allergies Social History [...] 08/25/2024 11:14 AM CDT Plan of Treatment Health Maintenance Due Date Last Done Comments Annual Physical 1991 DTaP, Tdap and Td Vaccines (2 - Tdap) 03/04/2003 2003, 01/27/1993, 11/13/1991, Additional history exists Hepatitis A Vaccines (1 of 2 - Risk 2-dose series) 2007 HPV Vaccines (1 - 3-dose SCDM series) 2015 COVID-19 Vaccine ( - season) 2025 Influenza Adult (#1) 2025 Hepatitis B Vaccines Completed 03/17/1999, 09/09/1998, 08/12/1998 Hepatitis C Completed 04/01/2025 Meningococcal B Vaccine Aged Out No l [...] on patient's age to complete this topic [place] Care Teams Harp Regulator Relationship Specialty Start Date End Date Scott Suresh MD [address] [place] [phone] PCP - General FAMILY PRACTICE 04/16/19
== END 2025-04-07 07:13 | disposition home or self-care (01) ==
PROVIDERS: PCP Physician Assistant; Visit Provider Physician Assistant
DX: B19.20 Unspecified viral hepatitis C without hepatic coma (principal); R16.0 Hepatomegaly, not elsewhere classified
CPT/HCPCS: 76705